=== PATIENT | male | born 1990 | race Caucasian/White ===

== ENCOUNTER 2019-07-04 11:32 | Emergency (ER) | payer SELFPAY ==
[2019-07-04 11:39] VITALS: BP 167/105; PULSE 117; RESP 20; TEMP 36.7; O2SAT 100
--- NOTE | 2019-07-04 12:01 | ED.GENADULT ---
HPI - General Adult General Chief complaint: Nausea/Vomiting/Diarrhea Stated complaint: vomiting Time Seen by Provider: 07/04/19 11:44 Source: patient and RN notes reviewed Mode of arrival: ambulatory Limitations: no limitations History of Present Illness HPI narrative: Patient presents today complaining of nausea and vomiting related to alcohol withdrawal. Patient states that he has had 1 bottle of liquor every day since mid May. His last drink was approximately 24 hours ago. At 2:00 this morning, he started vomiting, and has vomited approximately 9 times since that time. States he no longer feels nauseated. Reports he feels swelling in his uvula that is causing him to gag. States that he has had similar binges in the past that resulted in hallucinations with his withdrawal symptoms. He has never gone to the hospital when this happens. Denies hx of seizures related to alcohol withdrawal. He has been able to drink water since his vomiting episodes, and states he tends to get shaky after vomiting. MD complaint: Alcohol withdrawal Related Data Allergies Allergy/AdvReac Type Severity Reaction Status Date / Time No Known Allergies Allergy Mild Verified 02/17/08 17:52 Review of Systems Review of Systems: Narrative: CONSTITUTIONAL: Denies body aches, fever, chills, or sweats. EYES: Denies visual changes, redness, or discharge. ENT: Denies rhinorrhea, congestion, sore throat, or otalgia. Swelling in the throat CARDIOVASCULAR: Denies chest pain, palpitations, or edema. RESPIRATORY: Denies cough or dyspnea. GASTROINTESTINAL: Denies abdominal pain, or diarrhea.+ Nausea and vomiting GENITOURINARY: Denies dysuria or hematuria. SKIN: Denies rash, itching, or wounds. MUSCULOSKELETAL: Denies back pain, joint pain, or myalgia. NEUROLOGIC: Denies headache, numbness, tingling, or weakness. Shakiness PSYCH: Denies depression or anxiety. [facility] Family History Family History (Updated 05/08/19 @ 08:13 by Jeimy Choudhary) Other Diabetes mellitus Elevated lipids Hypertension Social History Social History (Updated 07/04/19 @ 13:32 by Kelly Smith, [facility], ) Alcohol intake: current Alcohol use details: Binges Comments At time of signature, I have reviewed and agree with nursing past medical, surgical, social and family history unless otherwise noted. Please see nursing chart for further information. There is no relevant family history pertinent to the presenting complaint Exam Narrative: Exam Narrative: GENERAL: Mildly ill-appearing, well-nourished, and in no acute distress. HEAD: Normocephalic, atraumatic. EYES: EOMI. No redness or drainage. Conjunctivae normal. ENT: Mucous membranes pink and moist. Nares clear. No rhinorrhea. TMs normal bilaterally. Uvula is slightly erythematous and edematous. Throat is otherwise normal. Uvula midline. NECK: Normal AROM. Supple. No lymphadenopathy. CHEST: No respiratory distress. Clear to auscultation. HEART: Regular rhythm. + Tachycardia. No murmur appreciated. Normal peripheral pulses. ABDOMEN: Soft, nontender, nondistended, normal active bowel sounds. EXTREMITIES: Normal range of motion. No edema. SKIN: Warm, dry, no rash. NEURO: No focal deficits. Alert and oriented x3. Gait steady. Fine tremors in the hands. PSYCH: Normal affect. No signs of depression or anxiety. Course Course Emergency Course: Due to patient's tachycardia, hypertension, and current symptoms, I recommend the patient go to the ER for rehydration, blood work for possible electrolyte imbalance, and to monitor for delirium tremens. Patient declines transfer. He does not currently seem under the influence of alcohol or drugs and is able to make his own decisions. He is ANO x4. Patient is willing to sign AMA paperwork and understands that if he goes home without ER evaluation, his symptoms may worsen, up to and including . He has been urged to go to the ER immediately if any symptoms worsen. V
== END 2019-07-04 12:10 | disposition left against medical advice (07) ==
PROVIDERS: Emergency Provider Nurse Practitioner
DX: F10.230 Alcohol dependence with withdrawal, uncomplicated (principal)
CPT/HCPCS: 99213; G0463

== ENCOUNTER 2020-02-19 06:39 | Inpatient (IN) | payer MEDICAID, SELFPAY ==
[2020-02-19] VITALS (12 sets, daily range): BP systolic 101–158; BP diastolic 56–106; PULSE 68–133; RESP 14–23; TEMP 36.5–37.2; O2SAT 96–100; BMI 23.8
--- NOTE | ~2020-02-19 | US_ITS ---
EXAMINATION: US right upper quadrant DATE: 02/19/2020 14:41 INDICATION: Abnormal liver function tests. TECHNIQUE: Multiple grayscale and Doppler ultrasound images of the abdomen were obtained. COMPARISON: None FINDINGS: The visualized portions of the head and body of the pancreas are normal. There is diffuse h epatic steatosis. There is normal flow in main portal vein. The gallbladder is normal in size. No gal lstones or gallbladder wall thickening. There was no sonographic Manley sign. The common duct is norm al and measures 4 mm. IMPRESSION: 1. Diffuse hepatic steatosis. Reviewed, dictated and finalized at location A.
--- NOTE | ~2020-02-19 | CT_ITS ---
EXAMINATION: CT brain wo con EXAM DATE: 02/19/2020 08:54 INDICATION: Hallucinations. TECHNIQUE: Spiral CT of the head was performed without contrast. Axial, coronal and sagittal images were reviewed. The dose-length product (DLP) for this examination was 681.00 mGy-cm. The exposure w as tailored according to patient size, and iterative reconstruction (ASIR) was used as additional dos e reduction technique. There is no prior study for comparison. FINDINGS: There is no acute intraparenchymal hemorrhage. No evidence of intraparenchymal brain mass lesion. No evidence of acute infarction. There is no mass effect or midline shift. The ventricles are normal in size. There are no extra-axial collections. There are no acute calvarial fractures. T he orbits are unremarkable. Soft tissue is unremarkable. The visualized sinuses and mastoid air delvis ls are well aerated. IMPRESSION: 1. Unremarkable head CT examination. Reviewed, dictated and finalized at location A.
--- NOTE | ~2020-02-19 | XR_ITS ---
XR chest 1V portable 02/19/2020 07:43 Indication: Hallucinations. Detoxing. Procedure: AP portable chest Comparison: No prior studies for comparison. Findings: Heart size normal. Mild interstitial infiltration bilaterally. No pleural effusion or pneum othorax. No acute osseous abnormality. Impression: 1: Bilateral interstitial infiltration which may relate to low lung volumes, mild interstitial edema or atypical pneumonia. Reviewed, dictated and finalized at location B. Impression: 1: Bilateral interstitial infiltration which may relate to low lung volumes, mi ld interstitial edema or atypical pneumonia.
--- NOTE | 2020-02-19 07:12 | ECG_ITS ---
Measurements Intervals [place] Rate: 114 P: 52 FL: 136 QRS: 70 QRSD: 98 T: 49 QT: 335 QTc: 463 Interpretive Statements SINUS TACHYCARDIA POSSIBLE LEFT ATRIAL ENLARGEMENT POSSIBLE LEFT VENTRICULAR HYPERTROPHY ST ELEVATION IN ANTEROLAT/INF LEADS- PROBABLY EARLY REPOLARIZATION BASELINE ARTIFACT- I, II, III, AVR, AVL, AVF, V1-V3 ABNORMAL ECG Electronically Signed On 02-19-2020 8:29:12 CDT by Rudolph Stahl D.O.
--- NOTE | 2020-02-19 07:13 | PC.NURSE ---
Report to oncoming RN
--- NOTE | 2020-02-19 07:33 | ED.PSYCH ---
HPI - Psych General Chief Complaint: Psychiatric Symptoms Stated Complaint: delusions Time Seen by Provider: 02/19/20 06:58 Source: patient and EMS Mode of arrival: EMS Limitations: no limitations History of Present Illness HPI Narrative: This patient is a 29 year old male with history of alcoholism who presents with EMS for evaluation of delusions. EMS states they were called to police because patient was having delusions that he had blood on his hands and he was at a [employer] party. Patient states he last drank alcohol 5 days ago. He reports he will binge alcohol for a month and then detox. He states he was drinking 1.5 bottles daily before quitting last Tuesday. He reports history of withdrawal. He is tremulous but he states he feels fine. He denies headache, nausea, vomiting, chest pain, sob or dizziness. Related Data Allergies Allergy/AdvReac Type Severity Reaction Status Date / Time No Known Allergies Allergy Mild Verified 02/17/08 17:52 Review of Systems Review of Systems: All systems reviewed & are unremarkable except as noted in HPI and below Constitutional: Constitutional: Denies chills and Denies fever(s) Cardiovascular: Cardiovascular: Denies chest pain Respiratory: Respiratory: Denies cough and Denies dyspnea Gastrointestinal: Gastrointestinal: Denies abdominal pain, Denies diarrhea, Denies nausea and Denies vomiting Musculoskeletal: Musculoskeletal: Denies back pain PMFSH Past Medical History Medical History Patient denies medical problems Surgical History Surgical History No significant past surgical history Family History Family History Other Diabetes mellitus Elevated lipids Hypertension Social History Social History Social History: The patient was positive for marijuana and told ear that he does binge drink for a month at a time and drinks about 1 and half pt of liquor a day When he binge drinks. Patient is listed as a full code. Smoking status: Current every day smoker Tobacco type: cigarettes Second hand tobacco smoke exposure: No Alcohol intake: current Substance use: current Gender identity (if verbalized by the patient): Male Spiritual care concerns: No Exam Const: General: alert Orientation/consciousness: patient oriented x3 HENMT: Head: atraumatic Face and sinus: face symmetric Mouth: Yes Normal oral and palatal mucosa present and Yes lip normal Eyes: EOM: EOMs intact bilaterally Resp: Effort & Inspection: normal respiratory effort and no retractions Auscultation: clear to auscultation bilaterally Cardio: Rate: tachycardic Rhythm: regular rhythm and regular rhythm GI: GI Palp: Yes Soft to palpation, No Tenderness to palpation present (GI), No Guarding due to palpation present (GI) and No Rigid due to palpation Skin: General skin exam: normal color Rashes: no rashes Neuro: General: patient oriented x3, moves all extremities and CN's II-XI intact bilaterally Extrem: General: no pedal edema Psych: Mental Status: mental status grossly normal Affect: normal affect Course Reevaluation(s) Reevaluation #1: Patient is becoming increasing agitated. Will move to ICU. Date: 02/19/20 Time: 10:30 Consultations Consultation #1: I spoke with Dr. Sullivan and he accepts patient to IMU for alcohol withdrawal. Date: 02/19/20 Time: 10:00 Consultation #2: I discussed with Dr. Araujo who accepts to ICU. Date: 02/19/20 Time: 10:45 Vital Signs Vital signs: Vital Signs Temperature 99.0 F 02/19/20 06:42 Pulse Rate 128 H 02/19/20 06:42 Respiratory Rate 23 H 02/19/20 06:42 Blood Pressure 153/106 H 02/19/20 06:42 Pulse Oximetry 100 02/19/20 06:42 Temperature 99.0 F 02/19/20 06:42 Pulse Rate 127 H 02/19/20 0
--- NOTE | 2020-02-19 07:45 | PC.NURSE ---
DURING INITIAL EXAM THE PT ALERT TO SELF AND PLACE. DISORIENTED ON TIME/DATE. ABLE TO RECITE YEISON EWING IS PRESIDENT. PT REPORTS SEEING HIS DOG MAX IN THE BARNETT OF THE ED AND IT WAS EXPLAINED TO THE PT THAT NO DOG IS OUT IN THE BARNETT. PT VERBALIZED UNDERSTANDING
[2020-02-19] MEDS: LACTATED RINGERS 1,000 ML 999 ML IV CONT ×2 (07:48→09:20)
[2020-02-19 07:54] LABS: Basophils Percent Auto 0.2 % (0.2-1.2); Hematocrit 43.6 % (42.0-52.0); Hemoglobin 15.4 g/dL (14.0-18.0); Immature Granulocyte Absolute 0.06 K/mm3 (0.00-0.031); Immature Granulocyte Percent A 0.4 % (0-0.5); Immature Platelet Fraction Pct 11.2 % (0.9-11.2); Lymphocytes Absolute Auto 0.56 K/mm3 (0.9-3.2); Lymphocytes Percent Auto 3.9 % (18.3-44.2); Mean Corpuscular HGB Conc 35.3 g/dl (32-36); Mean Corpuscular Hemoglobin 33.3 pg (26-34); Mean Corpuscular Volume 94.4 fl (80-100); Mean Platelet Volume 11.4 fl (7.4-10.4); Monocytes Absolute Auto 1.3 K/mm3 (0.1-0.6); Monocytes Percent Auto 8.8 % (2.6-8.5); Neutrophils Absolute Auto 12.4 K/mm3 (1.3-6.7); Neutrophils Percent Auto 86.7 % (45.5-73.1); Platelet Count Result 114 k/mm3 (150-375); Red Blood Count 4.62 M/mm3 (4.6-6.20); Red Cell Distribution Width 12.7 % (11.5-14.5); White Blood Count 14.3 K/mm3 (4.5-10.0)
[2020-02-19 08:00] LABS: Add Urine Microscopic? YES; Appearance Urine Clear (Clear); Bilirubin Urine Negative (Negative); Blood Urine 1+ (Negative); Color Urine Yellow (Yellow); Glucose Urine UA 1+ mg/dL (Negative); Ketones Urine Trace mg/dL (Negative); Leukocyte Esterase Ur Negative LEU/UL (Negative); Mucus Urine Rare /lpf; Nitrate Urine Negative (Negative); Protein Urine 3+ mg/dL (Negative); RBC Urine 0-2 /hpf (0-2); Urobilinogen Urine Negative mg/dL (<2.0); WBC Urine 0-3 /hpf
[2020-02-19 08:04] LABS: Prothrombin Time 13.1 Seconds (11.1-14.7)
[2020-02-19 08:07] LABS: Alanine Aminotransferase 117 U/L (4-50); Albumin Level 5.2 g/dL (3.5-5.1); Alkaline Phosphatase 61 U/L (38-126); Anion Gap 15 mmol/L (8-16); Aspartate Amino Transferase 131 U/L (17-59); Blood Urea Nitrogen 13 mg/dL (9-20); Calcium 11.3 mg/dL (8.4-10.2); Carbon Dioxide 24 mmol/L (22-30); Chloride 92 mmol/L (98-107); Estimated CRCL calculation 162 ml/min; Estimated Glomerular Filt Rate > 60; Glucose 112 mg/dL (75-110); Magnesium 2.4 mg/dL (1.6-2.3); Potassium 3.4 mmol/L (3.4-5.0); Sodium 131 mmol/L (137-145)
[2020-02-19 08:09] LABS: Ethanol < 10 mg/dL (<10)
[2020-02-19 08:26] LABS: Creatine Kinase 574 U/L (55-170)
[2020-02-19 08:28] LABS: Amphetamine Screen Urine Negative (Negative); Barbiturate Screen Urine Negative (Negative); Benzodiazepines Screen Urine Negative (Negative); Cannabinoid Screen Urine Positive (Negative); Cocaine Screen Urine Negative (Negative); Methadone Screen Urine Negative (Negative); Opiate Screen Urine Negative (Negative); Phencyclidine Screen Urine Negative (Negative)
--- NOTE | 2020-02-19 08:30 | PC.NURSE ---
PT COOPERATIVE BUT REMAINS FIDGETY. PULLING AT GOWN AND PICKING AT HIS FINGERTIPS. ADVISED PT TO KEEP ARMS RELAXED. LIGHTS DIMMED FOR COMFORT. SITTER IS AT BEDSIDE FOR MONITORING.
[2020-02-19 09:15] LABS: NT Pro B Type Natriuretic Pept 429 PG/ML (5-100)
[2020-02-19 09:20] LABS: Troponin I 0.015 ng/mL (0.000-0.034)
[2020-02-19 09:23] LABS: CRP 1.8 mg/dL (<1.0)
--- NOTE | 2020-02-19 09:30 | PC.NURSE ---
PT BECOMING MORE BIZARRE WITH HIS SPEECH AND DELUSIONS. THINKS THAT THE TOWEL DISPENSER IS A ROBOT LOOKING AT HIM. ALERT TO SELF ONLY AT THIS TIME. TREMORS CONTINUE.
[2020-02-19 09:41] LABS: Lactic Acid Reflex 1.5 mmol/L (0.7-2.1)
--- NOTE | 2020-02-19 11:05 | PC.NURSE ---
PT INCREASINGLY AGITATED AND CONFUSED WITH NONSENSICAL SPEECH. DR RODRIGEZ AWARE AND MORE ATIVAN WAS GIVEN. MECHE AT BEDSIDE TO HELP MONITOR PT
[2020-02-19] MEDS: POTASSIUM CHLORIDE 20 MEQ TABLET 40 MEQ PO (11:19)
[2020-02-19] MEDS: chlordiazePOXIDE 25 MG CAPSULE 50 MG PO ×2 (11:19→23:19)
[2020-02-19] MEDS: HALOPERIDOL LACTATE 5 MG/ML VIAL 2 MG IV PUSH (11:28)
--- NOTE | 2020-02-19 11:30 | PC.NURSE ---
INCREASINGLY AGITATED. ATTEMPTING TO GIVE PO MEDS AND START ADDITIONAL IV FLUIDS/MEDS. HALDOL GIVEN PER ORDER. WILL CALL REPORT TO ICU YOVANY
--- NOTE | 2020-02-19 12:37 | WPDCNINT ---
Assessment and Plan Assessment and plan (1) Encephalopathy acute: Code(s): G93.40 - Encephalopathy, unspecified Status: Acute Assessment and Plan: acute encephalopathy is multifactorial. From history and clinical presentation it is possible that patient is withdrawing from alcohol leading to tremors and hallucinations. Patient has received significant amount of Ativan and Haldol in the ER and history is limited at this point. Patient may also have used other drugs which we are not aware of at this point. Urine drug screen has been reviewed. Head CT was negative. neurochecks (2) Delirium tremens: Code(s): F10.231 - Alcohol dependence with withdrawal delirium Status: Acute Assessment and Plan: I have started patient on Precedex infusion. Patient is restrained for his own safety. Continue thiamine and folic acid p.r.n. Ativan and schedule Librium monitor in ICU (3) Sepsis: Code(s): A41.9 - Sepsis, unspecified organism Status: Acute Assessment and Plan: patient has elevated white count and other criteria to meet for sepsis. lactic acid was normal And also has some interstitial infiltrates on his chest x-ray could be atypical pneumonia patient is on empiric antibiotic sent culture and check Legionella COVID-19 rule out IV fluids (4) Pneumonia: Code(s): J18.9 - Pneumonia, unspecified organism Status: Acute Assessment and Plan: chest x-ray suggested interstitial infiltrate which could be pneumonia. Patient has elevated BNP suggestive of evidence of congestive heart failure although patient is only 29 years old but could have nonischemic cardiomyopathy from alcohol abuse. I will check echocardiogram. will check Legionella urine antigen cultures have been sent patient will be on empiric antibiotic cautious IV fluids specially in light of his rhabdo and possible pneumonia (5) Rhabdomyolysis: Code(s): M62.82 - Rhabdomyolysis Status: Acute Assessment and Plan: IV fluids monitor electrolytes (6) Suspected COVID-19 virus infection: Code(s): Z20.828 - Contact with and (suspected) exposure to other viral communicable diseases Status: Acute Assessment and Plan: COVID-19 suspected. SARS-CoV-2 PCR sent and results pending Patient is in Airborne, Droplet and Contact Isolation (7) Elevated liver enzymes: Code(s): R74.8 - Abnormal levels of other serum enzymes Status: Acute Assessment and Plan: likely secondary to alcohol abuse monitor levels check right upper quadrant ultrasound Additional Plan DVT prophylaxis - SCDs Nutrition - NPO at this Code Status - Full Code Relief Worker Consult Note Consult date: 02/19/20 Time Seen: 12:00 HPI: Abelardo Miller is a 29 year male with history of alcoholism who presented with EMS for evaluation of hallucinations. EMS states they were called to police because patient was having hallucination that he had blood on his hands and he was at a cult [employer]. Patient mentioned in the ED that his last drank alcohol was 5 days ago. He reported that he will binge alcohol for a month and then detox. He states he was drinking 1.5 bottles daily before quitting last Tuesday. He reported history of withdrawal. He was tremulous but he stated he felt fine at that time. He denied other complaints at that point. Patient had elevated white count and chest x-ray showed infiltrate patient's was started on antibiotics IV fluids and isolated for COVID-19 testing. Patient alcohol withdrawal symptoms got worse and he became more tremulous agitated in the ER as per sign out from ED physician. Initially patient was going to be admitted to step-down unit patient required significant amount of Ativan and Haldol to control his agitation. At that point ICU bed was requested for closer monitoring and management of patient's alcohol withdrawal symptom
--- NOTE | 2020-02-19 12:42 | ADMGEN ---
This patient, Abelardo Miller, was admitted to Intensive Care Unit-5. Patient/family oriented to hospital policies and general routines including ID bracelet, bed and alarms, visiting hours, pain management, procedures, bathroom and other care routines, personal items, smoking policy, room service/diet, and visiting hours. Valuables list has been completed. Information on how to activate the Rapid Response Team has been discussed. Patient/Family are encouraged to report perceived risks to care and to ask questions if they do not understand what they are told or what they should do.
--- NOTE | 2020-02-19 12:45 | PM.IMHP ---
H&P: HPI History of Present Illness Date/Time: 02/19/20 12:45 Chief complaint: alcohol withdrawl,leukocytosis,dehydration Narrative: Robert Miller is a 29 year old male Who has a history of alcoholism. He came to the emergency room to be evaluated for delusions. The please were called because the patient was having delusions that he had blood on his hands and he was out [employer] party. His last known alcoholic drink was approximately 5 days ago. The patient her told ER that he would binge drink for month and then he would detox. He was drinking up to 1 and half bottles daily and quit this past Tuesday. He has not had any history of any seizures or history of withdrawals. Although he was tremulous in the emergency room and stated that he was fine. He denied any fever chills or cough. He denied any nausea vomiting chest pain shortness of breath or dizziness. EKG was read as sinus tachycardia. It is unclear if the patient had gotten violent in the emergency room. Chest x-ray was read as atypical pneumonia. The patient was started on IV azithromycin and Rocephin. Blood cultures are pending. he has l leukocytosis with white count of 14.3. Sodium is 131, chloride 92, AST is 131, ALT 117, total creatinine kinase 574, C reactive protein 1.8. His tox screen was positive for cannabis. Patient was started on a banana bag. He is on a Precedex drip. He was placed in the intensive care unit in isolation . It looks like the patient was given potassium in the emergency room started on lactated Ringer's initially and given several doses of Ativan as well as Haldol. Patient was admitted to ICU as date of service 02/19/20 Review of Systems Review of Systems: Narrative: the patient is on a Precedex drip and is unresponsive. ROS unobtainable: Yes unobtainable due to mental status Constitutional: Constitutional: Reports as per HPI and Reports no additional constitutional complaints Eyes: Eyes: Reports as per HPI and Reports no additional eye complaints ENT: Reports system reviewed and no additional complaints, except as documented and Reports Normal hearing present Cardiovascular: Cardiovascular: Reports no additional cardiovascular complaints Respiratory: Respiratory: Reports no additional respiratory complaints and Reports no additional respiratory complaints Gastrointestinal: Gastrointestinal: Reports as per HPI and Reports no additional gastrointestinal complaints Musculoskeletal: Musculoskeletal: Reports no additional musculoskeletal complaints Integumentary/Breasts: Skin/Breast: Reports system reviewed and no additional complaints, except as docu and Reports as per HPI Neurologic: Reports system reviewed and no additional complaints, except as documented, Reports as per HPI and Reports Normal hearing present Psychiatric: Psychiatric: Reports no additional psychiatric complaints and Reports as per HPI Endocrine: Endocrine: Reports no additional endocrine complaints Hematologic/Lymphatic: Hematologic/Lymphatic: Reports no additional hematologic/lymphatic complaints Allergic/Immunologic: Allergic/Immunologic: Reports no additional allergic/immunologic complaints PMF Past Medical History Medical History Patient denies medical problems Surgical History Surgical History No significant past surgical history Family History Family History Other Diabetes mellitus Elevated lipids Hypertension Social History Social History (Updated 02/19/20 @ 12:58 by Dot Mujica NP) Social History: The patient was positive for marijuana and told ear that he does binge drink for a month at a time and drinks about 1 and half pt of liquor a day When he binge drinks. Patient is listed as a full code. Smoking status: Current every day smoker Tobacco type: cigaret
--- NOTE | 2020-02-19 13:22 | PC.NURSE ---
PT ALERT TO SELF AND PLACE. CONFUSED ON TIME. ABLE TO GIVE PRESIDENT'S FULL NAME YEISON EWING . WHILE IN ROOM DURING INITIAL EXAM THE PT REPORTED SEEING HIS DOG MAX OUT IN THE BARNETT. PT WAS REORIENTED AND TOLD NO DOG IS IN THE ED.
[2020-02-19 14:22] LABS: Ammonia 16 umol/L (9-30)
[2020-02-19 14:38] LABS: Iron 33 ug/dL (49-181)
[2020-02-19 14:47] LABS: Percent Iron Saturation 13 % (20-50)
[2020-02-19 15:11] LABS: Hepatitis B Surface Antigen Negative (Negative)
[2020-02-19 15:17] LABS: HAV RESULT Negative (Negative); Hepatitis B Core IgM Result Negative (Negative)
[2020-02-19 15:29] LABS: Folic Acid 17.2 ng/mL (2.76->20)
[2020-02-19 15:35] LABS: Hepatitis C Virus Antibody Negative (Negative)
[2020-02-19 16:28] LABS: Hepatitis B Surface Anti Res Indeterminate
[2020-02-19 20:33] LABS: SARS-CoV-2 RNA PCR Negative
[2020-02-19] MEDS: SODIUM CHLORIDE 0.9% IV 1,000 ML 100 ML IV CONT (23:18)
[2020-02-20] VITALS (9 sets, daily range): BP systolic 134–149; BP diastolic 90–113; PULSE 73–89; RESP 17–22; TEMP 36.3–37.1; O2SAT 93–100
--- NOTE | 2020-02-20 | ECHO_ITS ---
Patient Info Name: Abelardo Miller Age: 29 years : 1990 Gender: Male Ht: 76 in Wt: 195 lbs BSA: 2.18 m2 HR: 80 bpm BP: 147 / 113 mmHg Heart Rhythm: Sinus Rhythm Technical Quality: Good Exam Date: 02/20/2020 10:16 AM Exam Location: [facility] Pulmonary Patient Status: Inpatient Admit Date: 02/19/2020 Staff Ordering Physician: Jake Araujo MD [employer] Operator: Don Aldana RDCS Attending Provider: Emy Sullivan MD Exam Type: CA echo doppler color flow Study Info Indications I50.9 - Heart failure, unspecified Complete two-dimensional, color flow and Doppler transthoracic echocardiogram is performed. Strain analysis performed. History/Risk Factors Heart failure; elevated BNP, AMS 2/2 EtOH withdrawal, sepsis. Summary 1. Complete two-dimensional, color flow and Doppler transthoracic echocardiogram is performed. 2. Normal left ventricular size and thickness. The left ventricular systolic function is mildly reduced, measured EF is 49% with a visual EF of 45-50%. No focal wall motion abnormalities. Global longitudinal strain is mildly reduced at -14%, consistent with systolic dysfunction. Normal diastolic function. 3. No pulmonary hypertension, estimated pulmonary arterial systolic pressure is 31 mmHg. 4. There is trace mitral valve regurgitation. 5. Trivial mitral and tricuspid regurgitation. 6. Normal sinus rhythm. Left Ventricle Left ventricular chamber dimension is normal. Left ventricular systolic function is mildly reduced, estimated at 45-50%. There is no increased left ventricular wall thickness. Left ventricular septal wall motion is normal. The left ventricular diastolic function is normal. E/e' 6.2 is moderately elevated. Global longitudinal strain is mildly elevated at -14 %. Right Ventricle Right ventricular chamber dimension is normal. Right ventricular systolic function is normal. Left Atria Left atrial chamber dimension is normal. Right Atria Right atrial chamber dimension is normal. Aortic Valve The aortic valve is trileaflet. There is no aortic valve sclerosis. There is no aortic valve stenosis. There is no aortic valve regurgitation. Pulmonic Valve The pulmonic valve is normal. There is no pulmonic valve stenosis. There is no pulmonic regurgitation. Mitral Valve The mitral valve has normal leaflets. There is no mitral valve stenosis. There is trace mitral valve regurgitation. Tricuspid Valve The tricuspid valve leaflets are normal. There is no significant tricuspid valve stenosis. There is trace tricuspid valve regurgitation. No pulmonary hypertension, estimated pulmonary arterial systolic pressure is 31 mmHg. Pericardium/Pleural The pericardium appears normal. There is no pericardial effusion. Inferior Vena Cava Normal inferior vena cava with >50% collapse upon inspiration consistent with Empty right atrial pressure, 5 mmHg. Aorta The aortic root size at the sinus of Valsalva is normal. The prox ascending aorta size is normal. Left Ventricular Outflow Tract Name Value Normal LVOT 2D LVOT Diameter 2.3 cm LVOT Doppler
[2020-02-20 04:55] LABS: Basophils Percent Auto 0.3 % (0.2-1.2); Eosinophils Absolute Auto 0.1 K/mm3 (0-0.3); Eosinophils Percent Auto 1.3 % (0-4.4); Hematocrit 39.6 % (42.0-52.0); Hemoglobin 13.6 g/dL (14.0-18.0); Immature Granulocyte Absolute 0.05 K/mm3 (0.00-0.031); Immature Granulocyte Percent A 0.5 % (0-0.5); Immature Platelet Fraction Pct 8.9 % (0.9-11.2); Lymphocytes Absolute Auto 0.68 K/mm3 (0.9-3.2); Lymphocytes Percent Auto 7.1 % (18.3-44.2); Mean Corpuscular HGB Conc 34.3 g/dl (32-36); Mean Corpuscular Hemoglobin 33.3 pg (26-34); Mean Corpuscular Volume 97.1 fl (80-100); Mean Platelet Volume 11.3 fl (7.4-10.4); Monocytes Absolute Auto 0.9 K/mm3 (0.1-0.6); Monocytes Percent Auto 9.2 % (2.6-8.5); Neutrophils Absolute Auto 7.8 K/mm3 (1.3-6.7); Neutrophils Percent Auto 81.6 % (45.5-73.1); Platelet Count Result 107 k/mm3 (150-375); Red Blood Count 4.08 M/mm3 (4.6-6.20); Red Cell Distribution Width 12.8 % (11.5-14.5); White Blood Count 9.5 K/mm3 (4.5-10.0)
[2020-02-20 05:06] LABS: Alanine Aminotransferase 103 U/L (4-50); Albumin Level 3.9 g/dL (3.5-5.1); Alkaline Phosphatase 47 U/L (38-126); Anion Gap 6 mmol/L (8-16); Aspartate Amino Transferase 115 U/L (17-59); Bilirubin,Total 0.8 mg/dL (0.2-1.3); Blood Urea Nitrogen 8 mg/dL (9-20); Calcium 9.3 mg/dL (8.4-10.2); Carbon Dioxide 28 mmol/L (22-30); Chloride 102 mmol/L (98-107); Creatine Kinase 319 U/L (55-170); Estimated CRCL calculation 186 ml/min; Estimated Glomerular Filt Rate > 60; Glucose 98 mg/dL (75-110); Magnesium 2.1 mg/dL (1.6-2.3); Potassium 3.4 mmol/L (3.4-5.0); Sodium 136 mmol/L (137-145)
[2020-02-20] MEDS: chlordiazePOXIDE 25 MG CAPSULE 50 MG PO ×4 (05:19→23:19)
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
[2020-02-20] MEDS: SODIUM CHLORIDE 0.9% IV 1,000 ML 100 ML IV CONT ×2 (08:02→13:55)
[2020-02-20] MEDS: FOLIC ACID 1 MG/0.2 ML INJ IV PUSH (08:03)
[2020-02-21 04:28] LABS: Hematocrit 37.4 % (42.0-52.0); Immature Platelet Fraction Pct 7.1 % (0.9-11.2); Mean Corpuscular HGB Conc 34.8 g/dl (32-36); Mean Corpuscular Hemoglobin 33.2 pg (26-34); Mean Corpuscular Volume 95.7 fl (80-100); Mean Platelet Volume 11.1 fl (7.4-10.4); Platelet Count Result 127 k/mm3 (150-375); Red Blood Count 3.91 M/mm3 (4.6-6.20); Red Cell Distribution Width 12.9 % (11.5-14.5)
[2020-02-21 04:50] LABS: Alanine Aminotransferase 85 U/L (4-50); Alkaline Phosphatase 57 U/L (38-126); Anion Gap 8 mmol/L (8-16); Aspartate Amino Transferase 92 U/L (17-59); Bilirubin,Total 0.6 mg/dL (0.2-1.3); Blood Urea Nitrogen 4 mg/dL (9-20); Calcium 9.7 mg/dL (8.4-10.2); Carbon Dioxide 28 mmol/L (22-30); Chloride 101 mmol/L (98-107); Creatine Kinase 509 U/L (55-170); Estimated CRCL calculation 154 ml/min; Estimated Glomerular Filt Rate > 60; Glucose 91 mg/dL (75-110); Potassium 2.8 mmol/L (3.4-5.0); Sodium 137 mmol/L (137-145)
[2020-02-21] MEDS: chlordiazePOXIDE 25 MG CAPSULE 50 MG PO ×4 (06:03→23:31)
[2020-02-21 08:00] VITALS: BP 123/67; PULSE 86; RESP 14; TEMP 36.6; O2SAT 99
[2020-02-21] MEDS: FOLIC ACID 1 MG TABLET PO (08:39)
[2020-02-21] MEDS: THIAMINE HCL 100 MG TABLET PO (08:39)
--- NOTE | 2020-02-21 09:46 | PM.IMPN ---
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 (3) Delirium tremens: Code(s): F10.231 - Alcohol dependence with withdrawal delirium Status: Acute Assessment and Plan: Resolved. Still having withdrawal. Continue ETOH withdrawal protocol Started Librium 100 mg po q 6 hrs will taper off going home Supportive care Discussed 12 step program (4) Pneumonia: Code(s): J18.9 - Pneumonia, unspecified organism Status: Acute Assessment and Plan: Rocephin + Zithromax Continue to monitor (5) Elevated liver enzymes: Code(s): R74.8 - Abnormal levels of other serum enzymes Status: Acute Assessment and Plan: Slight elevation likely secondary to ETOH intake Trending down (6) Generalized anxiety disorder: Code(s): F41.1 - Generalized anxiety disorder Status: Acute Assessment and Plan: Patient expressed having anxiety. Started Buspirone 2.5 mg tid Will need follow up in the outpatient setting Needs to be set up for PCP as doesn't have one currently. Subjective Date/time seen: 02/21/20 09:46 Patient was seen and examined earlier in the morning. He was sitting was pleasant. Review of Systems Review of Systems: Narrative: Hallucinations, tremors, involuntary leg movement. 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 Eyes: Comments: No change in vision. ENT: Comments: No ear pain, no throat pain, no change in vision. Cardiovascular: Comments: no chest pain. Respiratory: Comments: no cough, no sputum production, no sob. Gastrointestinal: Comments: no n/v/abdominal pain. Musculoskeletal: Comments: no muscle weakness or pain. Integumentary/Breasts: Comments: no rashes, no wounds. Neurologic: Reports paresthesias and Reports tremor(s) Comments: Hand tremor, b/l LE paresthesias. Psychiatric: Comments: Visual hallucinations. Exam Narrative: Exam Narrative: Sitting on chair, NAD, well nourished, well developed, slim. Const: General: cooperative, comfortable, alert, awake and anxious Nutritional Appearance: well nourished Orientation/consciousness: patient oriented x3 Other: Some tremor of the hands b/l. HENMT: Head: normocephalic Ears: hearing grossly normal bilaterally General nose exam: Normal external nose present Face and sinus: normal facial exam Mouth: Yes Normal oral and palatal mucosa present Eyes: General: appearance normal, both eyes and all related structures Pupils: Equal, round and reactive pupils present EOM: EOMs intact bilaterally Neck: Neck: normal visual inspection, full ROM, no lymphadenopathy and no JVD Resp: Effort & Inspection: normal respiratory effort Auscultation: clear to auscultation bilaterally Cardio: Jugular venous distension: no JVD Palpation: normal PMI Rate: regular rate Rhythm: regular rhythm Heart sounds: S1 normal heart sound present and S2 normal heart sound present GI: Inspection: normal to inspection GI Palp: Yes Soft to palpation and Yes No hepatosplenomegaly present Auscultation: normal bowel sounds Skin: General skin exam: normal color Lesions: no lesions Rashes: no rashes Wounds: no wounds Neuro: General: patient oriented x3 Cranial nerves: Yes CN's II-XII intact bilaterally, Yes Equal, round and reactive pupils present and Yes Bilaterally intact EOM present Speech: normal speech Motor exam (neuro): 5/5 motor strength present throughout Other: Hand tremor Objective Data Vital Signs Vital Signs: Vital Signs - 24 hr 02/20/20 10:00 02/20/20 12:00 02/20/20 14:00 Temperature 98.2 F Pulse Rate 75 79 89 Respiratory Rate 22 H 21 H 22 H Blood Press
[2020-02-21] MEDS: GABAPENTIN 100 MG CAPSULE PO ×2 (11:15→18:16)
[2020-02-21] MEDS: busPIRone HCL 2.5 MG TABLET PO ×2 (11:15→20:22)
--- NOTE | 2020-02-21 15:08 | PC.NURSE ---
This patient, Abelardo Miller, was transferred to [facility] on 02/21/20 at 1500. Personal belongings sent with patient. Report given to Lluvia ROSALES. Appropriate documentation sent with patient.
[2020-02-21 15:10] VITALS: BP 160/98; PULSE 82; RESP 16; TEMP 36.6; O2SAT 98
[2020-02-21 20:00] VITALS: BP 165/112; PULSE 79; RESP 12; O2SAT 99
[2020-02-21 20:58] VITALS: BP 165/112; PULSE 79; RESP 12; TEMP 36.7; O2SAT 99
[2020-02-21 22:00] VITALS: BP 163/112
[2020-02-22 05:35] LABS: Hemoglobin 13.7 g/dL (14.0-18.0); Mean Corpuscular HGB Conc 34.3 g/dl (32-36); Mean Corpuscular Hemoglobin 33.3 pg (26-34); Mean Corpuscular Volume 97.1 fl (80-100); Mean Platelet Volume 11.1 fl (7.4-10.4); Platelet Count Result 176 k/mm3 (150-375); Red Blood Count 4.12 M/mm3 (4.6-6.20); Red Cell Distribution Width 12.8 % (11.5-14.5); White Blood Count 5.1 K/mm3 (4.5-10.0)
[2020-02-22 05:48] LABS: Potassium 3.3 mmol/L (3.4-5.0)
[2020-02-22] MEDS: chlordiazePOXIDE 25 MG CAPSULE 50 MG PO (05:51)
[2020-02-22 06:00] VITALS: BP 165/102; PULSE 76; RESP 12; TEMP 36.6; O2SAT 100
[2020-02-22 06:01] LABS: Alanine Aminotransferase 88 U/L (4-50); Albumin Level 4.1 g/dL (3.5-5.1); Alkaline Phosphatase 51 U/L (38-126); Anion Gap 6 mmol/L (8-16); Aspartate Amino Transferase 78 U/L (17-59); Bilirubin,Total 0.5 mg/dL (0.2-1.3); Blood Urea Nitrogen 5 mg/dL (9-20); Calcium 10.2 mg/dL (8.4-10.2); Carbon Dioxide 31 mmol/L (22-30); Chloride 103 mmol/L (98-107); Estimated CRCL calculation 162 ml/min; Estimated Glomerular Filt Rate > 60; Glucose 97 mg/dL (75-110); Magnesium 2.2 mg/dL (1.6-2.3); Sodium 140 mmol/L (137-145)
[2020-02-22] MEDS: busPIRone HCL 2.5 MG TABLET PO (07:55)
[2020-02-22] MEDS: GABAPENTIN 100 MG CAPSULE PO (07:56)
[2020-02-22] MEDS: THIAMINE HCL 100 MG TABLET PO (07:56)
[2020-02-22] MEDS: FOLIC ACID 1 MG TABLET PO (07:56)
--- NOTE | 2020-02-22 09:58 | PM.DS ---
DS: Admitting Diagnosis Admitting Diagnosis Admitting Diagnosis: alcohol withdrawl,leukocytosis,dehydration DS: Discharge Diagnosis Discharge Diagnosis (1) Generalized anxiety disorder: Code(s): F41.1 - Generalized anxiety disorder Status: Acute Assessment and Plan: Patient was started on Buspirone. Will try and get established care with PCP for follow up. (2) Alcoholic peripheral neuropathy: Code(s): G62.1 - Alcoholic polyneuropathy Status: Acute Assessment and Plan: Started on Gabapentin will need follow up with PCP. (3) Alcohol dependence with withdrawal: Code(s): F10.239 - Alcohol dependence with withdrawal, unspecified Status: Acute Assessment and Plan: Tapering course Librium Discussed 12 step program (4) Hyponatremia: Code(s): E87.1 - Hypo-osmolality and hyponatremia Status: Acute Assessment and Plan: Likely secondary to poor oral intake, resolved a the time of discharged, received iv fluids. (5) Thrombocytopenia: Code(s): D69.6 - Thrombocytopenia, unspecified Status: Acute Assessment and Plan: Likely secondary to ETOH intake. Continue to monitor. (6) Encephalopathy acute: Code(s): G93.40 - Encephalopathy, unspecified Status: Acute Assessment and Plan: Resolved Secondary to ETOH intake (7) Rhabdomyolysis: Code(s): M62.82 - Rhabdomyolysis Status: Acute Assessment and Plan: Mild rhabdo Given fluids CPK roughly in the 500's (8) Delirium tremens: Code(s): F10.231 - Alcohol dependence with withdrawal delirium Status: Acute Assessment and Plan: Resolved, Librium taperin course. DS: Summary Time Spent with Patient Time attestation: Total time spent providing and/or coordinating discharge services: Exam Narrative: Exam Narrative: Slim, well nourished, well developed. Const: General: no acute distress Nutritional Appearance: average body habitus Orientation/consciousness: patient oriented x3 HENMT: Head: normal to inspection and normocephalic Ears: hearing grossly normal bilaterally General nose exam: Normal external nose present Face and sinus: normal facial exam Mouth: Yes Normal oral and palatal mucosa present Eyes: Pupils: Equal, round and reactive pupils present EOM: EOMs intact bilaterally Neck: Neck: normal visual inspection, no lymphadenopathy and no JVD Resp: Effort & Inspection: normal respiratory effort Auscultation: clear to auscultation bilaterally Cardio: Jugular venous distension: no JVD Rate: regular rate Rhythm: regular rhythm Heart sounds: S1 normal heart sound present and S2 normal heart sound present GI: Inspection: normal to inspection GI Palp: Yes Soft to palpation and Yes No hepatosplenomegaly present Auscultation: normal bowel sounds Skin: General skin exam: normal color Lesions: no lesions Wounds: no wounds Neuro: General: patient oriented x3 Cranial nerves: Yes CN's II-XII intact bilaterally and Yes Equal, round and reactive pupils present Psych: Appearance: grossly normal Mental Status: mental status grossly normal Speech and movement: Normal speech and movement present Affect: normal affect Attitude: cooperative Thought process: Normal thought process present Thought content: Yes Normal thought content present Insight: Good insight present (Psych) Judgement: Good judgement present (Psych) DS: Data Data Completed and Pending Labs on day of discharge: Labs from last 24 hours 02/22/20 02/22/20 05:01 05:01 WBC 5.1 RBC 4.12 L Hgb 13.7 L Hct 40.0 L MCV 97.1 MCH 33.3 MCHC 34.3 RDW 12.8 Plt Count 176 MPV 11.1 H Sodium 140 Potassium 3.3 L Chloride 103 Carbon Dioxide 31 H Anion Gap 6 L BUN 5 L Creatinine 0.70 Estim Creat Clear Calc 162 Estimated GFR > 60 Glucose 97 Calcium 10.2 Magnesium 2.2 Total Bilirubin 0.5 AST 78 H ALT 88 H Alkaline
--- NOTE | 2020-02-22 10:48 | PC.NURSE ---
Copy of Negative Covid Test sent home with patient
[2020-02-23 10:07] LABS: Myoglobin, Urine 42 mcg/L (<28)
[2020-02-23 21:13] LABS: Hepatitis B Core Ab Total Nonreactive (Nonreactive)
[2020-02-24 13:32] LABS: Legionella pneumophila Ag Ur Not Detected (Not Detected)
[2020-02-25 14:44] LABS: Mitochondrial (M2) Ab (IgG) <=20.0 U (<=20.0)
[2020-02-25 20:49] LABS: Anti Nuclear Antibody Pattern Nuclear, Speckled
== END 2020-02-22 10:46 | disposition home or self-care (01) | DRG 775 ==
LOC: ANHED 06:58 → ANHICU 10:21 → ANH2MED 02-22 10:15 → ANHICU 02-25 16:51
PROVIDERS: Internal Medicine; Nurse Practitioner; Admitting Provider Family Medicine; Emergency Provider General Practice; Visit Provider Internal Medicine
DX: F10.231 Alcohol dependence with withdrawal delirium (principal); J18.9 Pneumonia, unspecified organism; G31.2 Degeneration of nervous system due to alcohol; G62.1 Alcoholic polyneuropathy; Z20.828 Contact with and (suspected) exposure to other viral communicable diseases; F41.1 Generalized anxiety disorder; E87.1 Hypo-osmolality and hyponatremia; D69.59 Other secondary thrombocytopenia; M62.82 Rhabdomyolysis; R74.8 Abnormal levels of other serum enzymes; E86.0 Dehydration; D72.829 Elevated white blood cell count, unspecified; F12.929 Cannabis use, unspecified with intoxication, unspecified; F17.210 Nicotine dependence, cigarettes, uncomplicated
CPT/HCPCS: 36415; 70450; 71045; 76705; 80053; 80307; 81001; 82140; 82550; 82607; 82728; 82746; 83520; 83540; 83550; 83605; 83735; 83874; 83880; 84443; 84484; 85025; 85027; 85055; 85610; 85730; 86038; 86039; 86140; 86704; 86705; 86706; 86709; 86803; 87040; 87340; 87449; 87635; 93005; 93306; 96361; 96374; 99285; A9270; C9803; J0456; J0696; J1630; J2060; J3411; J3475; J3480; J7030; J7120; U0003

== ENCOUNTER 2020-06-09 06:25 | Inpatient (IN) | payer OTHER, SELFPAY ==
[2020-06-09] VITALS (28 sets, daily range): BP systolic 105–149; BP diastolic 73–115; PULSE 96–121; RESP 12–21; TEMP 36.5–36.9; O2SAT 98–100; BMI 23.1
--- NOTE | 2020-06-09 07:09 | ED.GENADULT ---
HPI - General Adult General Chief complaint: Alcohol Stated complaint: Alcohol Withdrawl Time Seen by Provider: 06/09/20 07:02 Source: RN notes reviewed History of Present Illness HPI narrative: Patient presents to emergency department from home for alcohol withdrawal. Patient states he was drinking approximately a liter of vodka a day. States he stopped drinking 4 days ago because he decided was time to quit drinking for his health patient states that since that time he has been having nausea vomiting unable to keep anything down states that he is also been having both visual and auditory hallucinations as well as tremors. He states that he has had no thoughts of harming himself or anyone else he denies any fevers or chills chest pain shortness of breath abdominal pain or any other symptoms Related Data Home Medications Medication Instructions Recorded Confirmed No Home Medications 06/09/20 06/09/20 Allergies Allergy/AdvReac Type Severity Reaction Status Date / Time No Known Allergies Allergy Mild Verified 06/09/20 06:31 Review of Systems Review of Systems: Narrative: Gen.: Denies fevers or chills ENT: Denies congestion Respiratory: Denies shortness of breath or cough CV: Denies chest pain or palpitations GI: Denies abdominal pain reports nausea vomiting denies burning, urgency, frequency or hematuria Musculoskeletal: Denies back pain or muscle pain Neuro: Denies numbness, tingling, weakness or focal weakness reports tremors Skin: Denies rash Psych: Reports auditory and visual hallucinations Except as documented, all other systems reviewed and negative PMF Past Medical History Medical History (Updated 06/09/20 @ 09:21 by Dom Woodson DO) Patient denies medical problems Surgical History Surgical History No significant past surgical history Family History Family History Other Diabetes mellitus Elevated lipids Hypertension Social History Social History Social History: The patient was positive for marijuana and told ear that he does binge drink for a month at a time and drinks about 1 and half pt of liquor a day When he binge drinks. Patient is listed as a full code. Smoking status: Current every day smoker Tobacco type: cigarettes Second hand tobacco smoke exposure: No Alcohol intake: current Substance use: current Gender identity (if verbalized by the patient): Male Spiritual care concerns: No Exam Narrative: Exam Narrative: APPEARANCE: Anxious in appearance no acute distress, nontoxic, resting in bed EYES: EOMI HEENT: Normocephalic, atraumatic, OMM RESPIRATORY: No respiratory distress Clear to auscultation bilaterally with no rhonchi wheezing or rales. CARDIOVASCULAR: Regular rate and rhythm without murmurs rubs or gallops. ABDOMINAL: Soft, nontender, nondistended, no rebound or guarding MUSCULOSKELETAl: Moves all extremities. No clubbing, cyanosis or edema. NEURO: Awake and alert x 4. Following commands, speech normal, no focal deficits SKIN:: Warm, dry. No rashes lesions or abrasions PSYCHIATRIC: Normal affect/mood, Course Course Emergency Course: Patient states tremors are improved following Ativan Reviewed old records Discussed with Dr. Sullivan presentation work-up agrees with admission to IMCU at this time Discussed with patient and family results of workup and diagnosis. Discussed need for admission. Patient and family understand and agree to current treatment plan Vital Signs Vital signs: Vital Signs Temperature 98.5 F 06/09/20 06:28 Pulse Rate 121 H 06/09/20 06:28 Respiratory Rate 12 06/09/20 06:28 Blood Pressure 149/84 H 06/09/20 06:28 Pulse Oximetry 100 06/09/20 06:28 Temperature 98.5 F 06/09/20 06:28 Pulse Rate 110 H 06/09/20 09:01 Respiratory Rate 14 01
[2020-06-09] MEDS: SODIUM CHLORIDE 0.9% IV 1,000 ML 999 ML IV CONT ×2 (07:21→08:17)
[2020-06-09] MEDS: ONDANSETRON INJ 4 MG/2 ML VIAL IV PUSH (07:21)
[2020-06-09 07:24] LABS: Basophils Percent Auto 0.4 % (0.2-1.2); Eosinophils Percent Auto 0.1 % (0-4.4); Hematocrit 48.1 % (42.0-52.0); Hemoglobin 16.6 g/dL (14.0-18.0); Immature Granulocyte Absolute 0.02 K/mm3 (0.00-0.031); Immature Granulocyte Percent A 0.3 % (0-0.5); Immature Platelet Fraction Pct 11.2 % (0.9-11.2); Lymphocytes Absolute Auto 1.13 K/mm3 (0.9-3.2); Lymphocytes Percent Auto 14.6 % (18.3-44.2); Mean Corpuscular HGB Conc 34.5 g/dl (32-36); Mean Corpuscular Volume 95.6 fl (80-100); Monocytes Absolute Auto 1.1 K/mm3 (0.1-0.6); Neutrophils Absolute Auto 5.5 K/mm3 (1.3-6.7); Neutrophils Percent Auto 70.6 % (45.5-73.1); Platelet Count Result 140 k/mm3 (150-375); Red Blood Count 5.03 M/mm3 (4.6-6.20); Red Cell Distribution Width 12.8 % (11.5-14.5); White Blood Count 7.7 K/mm3 (4.5-10.0)
[2020-06-09] MEDS: LORazepam INJ (*CRX) 2 MG/ML VIAL 1 MG IV PUSH ×3 (07:28→20:23)
[2020-06-09] MEDS: THIAMINE HCL 200 MG/2 ML VIAL 100 MG IV PUSH (07:28)
[2020-06-09 07:31] LABS: INR 0.9; Prothrombin Time 12.6 Seconds (11.1-14.7)
[2020-06-09 07:32] LABS: Partial Thromboplastin Time 23.2 SECONDS (22.3-36.8)
[2020-06-09 07:33] LABS: Alanine Aminotransferase 105 U/L (4-50); Albumin Level 5.5 g/dL (3.5-5.1); Alkaline Phosphatase 72 U/L (38-126); Anion Gap 28 mmol/L (8-16); Aspartate Amino Transferase 137 U/L (17-59); Bilirubin,Total 1.1 mg/dL (0.2-1.3); Blood Urea Nitrogen 8 mg/dL (9-20); Calcium 11.5 mg/dL (8.4-10.2); Carbon Dioxide 15 mmol/L (22-30); Chloride 84 mmol/L (98-107); Estimated CRCL calculation 113 ml/min; Estimated Glomerular Filt Rate > 60; Glucose 141 mg/dL (75-110); Lipase 352 U/L (23-300); Potassium 4.2 mmol/L (3.4-5.0); Sodium 127 mmol/L (137-145)
[2020-06-09 07:41] LABS: Ethanol < 10 mg/dL (<10)
[2020-06-09 08:02] LABS: Add Urine Microscopic? YES; Appearance Urine Cloudy (Clear); Bilirubin Urine 1+ (Negative); Blood Urine 1+ (Negative); Color Urine Yellow (Yellow); Glucose Urine UA 1+ mg/dL (Negative); Hyaline Casts Urine 50+ /lpf; Ketones Urine 2+ mg/dL (Negative); Leukocyte Esterase Ur Negative LEU/UL (Negative); Mucus Urine Heavy /lpf; Nitrate Urine Negative (Negative); Protein Urine 3+ mg/dL (Negative); Specific Grav Ur 1.029 (1.001-1.035); Squamous Epithelial Cell Urine Occasional /hpf (Few); Urobilinogen Urine Negative mg/dL (<2.0)
[2020-06-09 08:34] LABS: Magnesium 1.9 mg/dL (1.6-2.3)
[2020-06-09] MEDS: chlordiazePOXIDE (*CRX) 25 MG CAPSULE 50 MG PO ×3 (09:57→22:16)
--- NOTE | 2020-06-09 11:13 | ADMGEN ---
This patient, Abelardo Miller, was admitted to IMU Room 201-01. Patient/family oriented to hospital policies and general routines including ID bracelet, bed and alarms, visiting hours, pain management, procedures, bathroom and other care routines, personal items, smoking policy, room service/diet, and visiting hours. Information on how to activate the Rapid Response Team has been discussed. Patient/Family are encouraged to report perceived risks to care and to ask questions if they do not understand what they are told or what they should do.
[2020-06-09] MEDS: LACTATED RINGERS 1,000 ML 125 ML IV CONT (14:08)
--- NOTE | 2020-06-09 16:01 | PM.IMHP ---
H&P: HPI History of Present Illness Date/Time: 06/09/20 16:01 Chief Complaint: Alcohol withdrawal Narrative: Abelardo Miller is a 29 year old male with history of alcohol abuse patient drinks 1 L of vodka every day had been doing for sometime however he decided to stop drinking 4 days ago, states he developed shakes tremor nausea and vomiting and hallucinating, patient states he was not able to hold anything p.o., was not able to sleep, was anxious with tremor, he was seeing things crawling on the wall and presented emergency department further evaluation, patient was tachycardia, tremor and hallucinating, in the ER patient was given Ativan and Librium and placed on IV hydration as well as thaimin, will start the patient on Librium 50 mg every 6 hours and taper 25 mg every 6 hours after 24 hours, currently patient states is feeling little better compared to when he arrived. Patient last drinks was 4 days ago and his alcohol level is less than 10 most likely patient is and the tail end of DT. Patient with hyponatremia most likely secondary to alcohol abuse, Will continue to monitor with CIWA protocol and further recommendation to follow. Review of Systems Review of Systems: All systems reviewed & are unremarkable except as noted in HPI and below PMFSH Past Medical History Medical History (Updated 06/09/20 @ 09:21 by Dom Woodson DO) Patient denies medical problems Surgical History Surgical History No significant past surgical history Family History Family History Other Diabetes mellitus Elevated lipids Hypertension Social History Social History Social History: The patient was positive for marijuana and told ear that he does binge drink for a month at a time and drinks about 1 and half pt of liquor a day When he binge drinks. Patient is listed as a full code. Smoking status: Light tobacco smoker Tobacco type: cigarettes Second hand tobacco smoke exposure: No Additional smoking assessment comments: very rarely Alcohol intake: current Drinks per week: 7 Substance use: current Substance use type: marijuana Other substance usage details: very rarely Gender identity (if verbalized by the patient): Male Spiritual care concerns: No Meds Home Medications and Allergies Home Medications Medication Instructions Recorded Confirmed Type No Home Medications 06/09/20 06/09/20 History Allergies Allergy/AdvReac Type Severity Reaction Status Date / Time No Known Allergies Allergy Mild Verified 06/09/20 10:36 Vital Signs Vital Signs - 24 hr 06/09/20 06:28 06/09/20 06:53 06/09/20 07:36 Temperature 98.5 F Pulse Rate 121 H 101 H 100 Pulse Rate [Bilateral Pedal (Dorsalis Pedis)] Respiratory Rate 12 13 18 Blood Pressure 149/84 H 105/78 Pulse Oximetry 100 99 06/09/20 07:37 06/09/20 07:45 06/09/20 07:46 Temperature Pulse Rate 99 108 H 111 H Pulse Rate [Bilateral Pedal (Dorsalis Pedis)] Respiratory Rate 18 20 21 H Blood Pressure 148/109 H 129/115 H Pulse Oximetry 99 06/09/20 08:00 06/09/20 08:01 06/09/20 08:15 Temperature Pulse Rate 105 H 113 H 107 H Pulse Rate [Bilateral Pedal (Dorsalis Pedis)] Respiratory Rate 19 18 21 H Blood Pressure 134/95 H Pulse Oximetry 100 100 99 06/09/20 08:16 06/09/20 08:17 06/09/20 08:30 Temperature Pulse Rate 109 H 107 H 108 H Pulse Rate [Bilateral Pedal (Dorsalis Pedis)] Respiratory Rate 19 17 21 H Blood Pressure 128/86 Pulse Oximetry 100 99 99 06/09/20 08:31 06/09/20 08:45 06/09/20 08:46 Temperature Pulse Rate 101 H 101 H 100 Pulse Rate [Bilateral Pedal (Dorsalis Pedis)] Respiratory Rate 19 18 16 Blood Pressure 135/91 H 131/92 H Pulse Oximetry 100 100 100 06/09/20 09:00 06/09/20 09:01 06/09/20 10:00 Temper
[2020-06-09] MEDS: THIAMINE HCL INJ 100 MG, FOLIC ACID INJ 1 MG, MULTIVITAMINS-12 INJ VIAL 1 5 ML, MULTIVI... IV CONT (18:09)
[2020-06-10] VITALS (19 sets, daily range): BP systolic 123–155; BP diastolic 74–111; PULSE 70–89; RESP 16–23; TEMP 36.6–36.9; O2SAT 97–100
[2020-06-10] MEDS: LORazepam INJ (*CRX) 2 MG/ML VIAL 1 MG IV PUSH ×6 (00:13→20:34)
--- NOTE | 2020-06-10 01:28 | P.PNCROSS_ITS ---
Event Note Event Note Event Note: CODE PURPLE NOTE Called to bedside via Code Purple. This 29 year old who is here being treated for acute alcohol withdrawal had become combative and trying to get out of bed. Nursing staff informed me that the patient had a CIWA score >25 and was hallucinating. On my encounter with him, he wouldn't listen to me and continued to try to get out of bed despite being treated with extra IV ativan. At this time we will transfer the patient to ICU for a precedex IV drip and closer monitoring. I have consulted our Appellate Court Judge and discussed the case in detail with him and he is in agreement.
--- NOTE | 2020-06-10 02:25 | PC.NURSE ---
This patient, Abelardo Miller, was transferred to [icu 4 ] on 06/10/20 at 0225. Personal belongings sent with patient. Report given to [Omero espinosa ]. Appropriate documentation sent with patient.
[2020-06-10] MEDS: dexmedeTOMIDine 400 MCG/100 ML 400 MCG/100 ML BAG 14.68 MCG IV CONT (02:32)
[2020-06-10] MEDS: LACTATED RINGERS 1,000 ML 125 ML IV CONT ×2 (05:23→13:21)
[2020-06-10 05:42] LABS: Basophils Percent Auto 0.6 % (0.2-1.2); Eosinophils Absolute Auto 0.1 K/mm3 (0-0.3); Eosinophils Percent Auto 1.5 % (0-4.4); Hematocrit 39.2 % (42.0-52.0); Hemoglobin 13.4 g/dL (14.0-18.0); Immature Granulocyte Absolute 0.01 K/mm3 (0.00-0.031); Immature Granulocyte Percent A 0.3 % (0-0.5); Immature Platelet Fraction Pct 9.8 % (0.9-11.2); Lymphocytes Absolute Auto 0.57 K/mm3 (0.9-3.2); Lymphocytes Percent Auto 16.6 % (18.3-44.2); Mean Corpuscular HGB Conc 34.2 g/dl (32-36); Mean Corpuscular Volume 93.6 fl (80-100); Mean Platelet Volume 11.5 fl (7.4-10.4); Monocytes Absolute Auto 0.6 K/mm3 (0.1-0.6); Neutrophils Absolute Auto 2.2 K/mm3 (1.3-6.7); Platelet Count Result 90 k/mm3 (150-375); Red Blood Count 4.19 M/mm3 (4.6-6.20); Red Cell Distribution Width 12.8 % (11.5-14.5); White Blood Count 3.4 K/mm3 (4.5-10.0)
[2020-06-10 05:46] LABS: Magnesium 2.2 mg/dL (1.6-2.3)
[2020-06-10 05:53] LABS: Alanine Aminotransferase 101 U/L (4-50); Albumin Level 4.2 g/dL (3.5-5.1); Alkaline Phosphatase 42 U/L (38-126); Anion Gap 10 mmol/L (8-16); Aspartate Amino Transferase 147 U/L (17-59); Bilirubin,Total 0.7 mg/dL (0.2-1.3); Blood Urea Nitrogen 9 mg/dL (9-20); Calcium 9.2 mg/dL (8.4-10.2); Carbon Dioxide 24 mmol/L (22-30); Chloride 100 mmol/L (98-107); Estimated CRCL calculation 180 ml/min; Estimated Glomerular Filt Rate > 60; Glucose 141 mg/dL (75-110); Potassium 3.4 mmol/L (3.4-5.0); Sodium 134 mmol/L (137-145)
[2020-06-10] MEDS: hydrALAZINE HCL 20 MG/ML VIAL 10 MG IV PUSH (07:56)
[2020-06-10] MEDS: chlordiazePOXIDE (*CRX) 25 MG CAPSULE PO ×3 (09:50→22:03)
[2020-06-10] MEDS: dexmedeTOMIDine 400 MCG/100 ML 400 MCG/100 ML BAG 12.59 MCG IV CONT (10:34)
--- NOTE | 2020-06-10 11:28 | WPDCNINT ---
Assessment and Plan Assessment and plan (1) Alcohol withdrawal: Code(s): F10.239 - Alcohol dependence with withdrawal, unspecified Status: Acute Assessment and Plan: Patient tremulous, 100 and visual hallucinations. Patient stop drinking 4 days prior to admission. Was diagnosed with alcohol withdrawal/DTs -now on Precedex infusion of to being combative on the medical floor -will add thiamine, folic acid, multivitamin -continue CIWA protocol -continue Librium -will gradually wean Precedex infusion (2) Nausea and vomiting: Code(s): R11.2 - Nausea with vomiting, unspecified Status: Acute Assessment and Plan: Resolved (3) Alcohol dependence with withdrawal: Code(s): F10.239 - Alcohol dependence with withdrawal, unspecified Status: Acute Assessment and Plan: Patient with alcohol dependence, -labs manifested elevated LFTs low platelet count, (4) Alcoholic ketoacidosis: Code(s): E87.2 - Acidosis Status: Acute Assessment and Plan: Resolved -patient was given adequate amount of fluids, Additional Plan Discussed with family and updated with patient's condition and plan of care. Code status: Full code Critical care time spent: 39 minutes Due to a high probability of clinically significant, life threatening deterioration, the patient required my highest level of preparedness to intervene emergently and I personally spent this critical care time directly and personally managing the patient. This critical care time included obtaining a history; examining the patient; pulse oximetry; ordering and review of studies; arranging urgent treatment with development of a management plan; evaluation of patient's response to treatment; frequent reassessment; and discussions with other providers. It was exclusive of separately billable procedures and treating other patients and teaching time. Please see Assessment and Plan section and the rest of the note for further information on patient assessment and treatment Legal Document Assistant Consult Note Consult date: 06/10/20 Time Seen: 07:10 Reason for consult: Alcohol withdrawal HPI: Abelardo iMller is a 29 year old male past medical history of patient drinks 1 L of vodka every day. Patient however decided to stop drinking about 4 days prior to admission wanted to quit drinking. Patient has been having some nausea, vomiting. Also noted to have visual and auditory hallucinations along with tremors. He was found to be in alcohol withdrawal and possible DTs in the ER. Was given adequate IV fluids Patient was transferred to the intermediate overnight there was a ?purple and patient became combative and trying to get out of bed. CIWA score > 25. He was also hallucinating, and would not listen to the physician other staff. Was given extra treatment with IV Ativan which was not helpful. Patient was transferred to the ICU for Precedex infusion. Patient seen and examined this morning, is awake, alert, follows simple commands in assist questions with yes and no. Patient remains on Precedex infusion at 0.7 mcg. Also on Librium. Urine output has been adequate, patient is hemodynamically stable, adequate O2 sats on room air. Patient denies any chest pain, shortness of breath, abdominal pain, nausea vomiting at this time Review of Systems Review of Systems: All systems reviewed & are unremarkable except as noted in HPI and below PMFSH Past Medical History Medical History (Updated 06/09/20 @ 09:21 by Dom Woodson DO) Patient denies medical problems Surgical History Surgical History No significant past surgical history Family History Family History Other Diabetes mellitus Elevated lipids Hypertension Social History Social History Social History: [facility]
[2020-06-10] MEDS: SODIUM CHLORIDE 0.9% IV 1,000 ML 999 ML IV CONT (11:43)
[2020-06-10] MEDS: THIAMINE HCL INJ 100 MG, FOLIC ACID INJ 1 MG, MULTIVITAMINS-12 INJ VIAL 1 5 ML, MULTIVI... IV CONT (17:17)
[2020-06-11] VITALS (12 sets, daily range): BP systolic 121–170; BP diastolic 85–114; PULSE 71–100; RESP 13–20; TEMP 36.3–37.1; O2SAT 95–100
[2020-06-11] MEDS: LORazepam INJ (*CRX) 2 MG/ML VIAL 1 MG IV PUSH ×3 (00:24→10:11)
[2020-06-11 00:33] LABS: Glucose Point of Care 107 (65-105)
[2020-06-11] MEDS: dexmedeTOMIDine 400 MCG/100 ML 400 MCG/100 ML BAG IV CONT (03:52)
[2020-06-11] MEDS: chlordiazePOXIDE (*CRX) 25 MG CAPSULE PO ×2 (03:55→09:00)
[2020-06-11 04:56] LABS: Basophils Percent Auto 0.7 % (0.2-1.2); Eosinophils Absolute Auto 0.1 K/mm3 (0-0.3); Eosinophils Percent Auto 2.7 % (0-4.4); Hemoglobin 12.9 g/dL (14.0-18.0); Immature Granulocyte Absolute 0.01 K/mm3 (0.00-0.031); Immature Granulocyte Percent A 0.2 % (0-0.5); Immature Platelet Fraction Pct 8.9 % (0.9-11.2); Lymphocytes Absolute Auto 0.75 K/mm3 (0.9-3.2); Lymphocytes Percent Auto 18.3 % (18.3-44.2); Mean Corpuscular HGB Conc 33.9 g/dl (32-36); Mean Corpuscular Hemoglobin 32.8 pg (26-34); Mean Corpuscular Volume 96.7 fl (80-100); Mean Platelet Volume 11.2 fl (7.4-10.4); Monocytes Absolute Auto 0.5 K/mm3 (0.1-0.6); Monocytes Percent Auto 12.7 % (2.6-8.5); Neutrophils Absolute Auto 2.7 K/mm3 (1.3-6.7); Neutrophils Percent Auto 65.4 % (45.5-73.1); Platelet Count Result 90 k/mm3 (150-375); Red Blood Count 3.93 M/mm3 (4.6-6.20); Red Cell Distribution Width 12.8 % (11.5-14.5); White Blood Count 4.1 K/mm3 (4.5-10.0)
[2020-06-11 05:07] LABS: Alanine Aminotransferase 105 U/L (4-50); Albumin Level 3.6 g/dL (3.5-5.1); Alkaline Phosphatase 40 U/L (38-126); Anion Gap 6 mmol/L (8-16); Aspartate Amino Transferase 125 U/L (17-59); Bilirubin,Total 0.6 mg/dL (0.2-1.3); Blood Urea Nitrogen 7 mg/dL (9-20); Calcium 8.8 mg/dL (8.4-10.2); Carbon Dioxide 28 mmol/L (22-30); Chloride 102 mmol/L (98-107); Estimated CRCL calculation 180 ml/min; Estimated Glomerular Filt Rate > 60; Glucose 94 mg/dL (75-110); Magnesium 2.1 mg/dL (1.6-2.3); Phosphorus 3.2 mg/dL (2.5-4.5); Potassium 3.2 mmol/L (3.4-5.0); Sodium 136 mmol/L (137-145)
[2020-06-11] MEDS: LACTATED RINGERS 1,000 ML 75 ML IV CONT (08:21)
[2020-06-11] MEDS: POTASSIUM CHLORIDE 20 MEQ TABLET 40 MEQ PO (08:35)
[2020-06-11] MEDS: chlordiazePOXIDE (*CRX) 25 MG CAPSULE 50 MG PO ×2 (11:08→17:21)
--- NOTE | 2020-06-11 12:31 | WPDINTPN ---
Progress Note: A&P Assessment and Plan (1) Alcohol withdrawal: Code(s): F10.239 - Alcohol dependence with withdrawal, unspecified Status: Acute Assessment and Plan: Patient tremulous, 100 and visual hallucinations. Patient stop drinking 4 days prior to admission. Was diagnosed with alcohol withdrawal/DTs -OFF precedex infusion -contiue thiamine, folic acid, multivitamin -continue [facility] protocol - increase Librium -ativan PRN (2) Nausea and vomiting: Code(s): R11.2 - Nausea with vomiting, unspecified Status: Acute Assessment and Plan: Resolved (3) Alcohol dependence with withdrawal: Code(s): F10.239 - Alcohol dependence with withdrawal, unspecified Status: Acute Assessment and Plan: Patient with alcohol dependence, -labs manifested elevated LFTs low platelet count, counseled pt on abstaining from drinking alcohol (4) Alcoholic ketoacidosis: Code(s): E87.2 - Acidosis Status: Acute Assessment and Plan: Resolved -patient was given adequate amount of fluids, Additional Plan Discussed with family and updated with patient's condition and plan of care. Code status: Full code Critical care time spent: 31 minutes Due to a high probability of clinically significant, life threatening deterioration, the patient required my highest level of preparedness to intervene emergently and I personally spent this critical care time directly and personally managing the patient. This critical care time included obtaining a history; examining the patient; pulse oximetry; ordering and review of studies; arranging urgent treatment with development of a management plan; evaluation of patient's response to treatment; frequent reassessment; and discussions with other providers. It was exclusive of separately billable procedures and treating other patients and teaching time. Please see Assessment and Plan section and the rest of the note for further information on patient assessment and treatment Subjective Date/time seen: 06/11/20 12:31 Interval history: Reason for consult: Alcohol withdrawal 06/11/2020: Patient examined this morning, patient is off Precedex infusion. This,, slightly tremulous. Pt tolerating PO diet. Good UO. On IV fluids. No issues overnight Review of Systems Review of Systems: All systems reviewed & are unremarkable except as noted in HPI and below Exam Const: General: comfortable and no acute distress HENMT: Mouth: Yes moist mucous membranes Eyes: Sclera: sclerae normal Pupils: Equal, round and reactive pupils present Neck: Neck: supple Resp: Effort & Inspection: normal respiratory effort Auscultation: clear to auscultation bilaterally Cardio: Rate: regular rate Rhythm: regular rhythm GI: Inspection: non-distended GI Palp: Yes Soft to palpation and No Tenderness to palpation present (GI) Auscultation: normal bowel sounds Urinary Catheter: Urinary Catheter: urine clear Skin: General skin exam: normal color and no rashes or lesions noted Neuro: Cranial nerves: Yes Equal, round and reactive pupils present Other: Patient is awake, alert, orally answers questions with a yes or no. Follows commands in all extremities Extrem: General: normal to inspection and exam abnormal as noted Psych: Other: Patient is somnolent Objective Data Vital Signs Vital Signs: Vital Signs - 24 hr 06/10/20 12:46 06/10/20 13:07 06/10/20 14:40 Temperature 98.2 F Pulse Rate 73 73 80 Pulse Rate [Bilateral Pedal (Dorsalis Pedis)] Respiratory Rate 18 18 20 Blood Pressure 135/93 H Pulse Oximetry 98 06/10/20 15:20 06/10/20 15:39 06/10/20 17:11 Temperature 97.9 F 98.4 F Pulse Rate 74 74 81 Pulse Rate [Bilateral Pedal (Dorsalis Pedis)] 74 Respiratory Rate 16 18 20 Blood Pressure 123/74 125/80 Pulse Oximetry 97 98 06/10/20 20:00 06/10/20 22:00 06/11/20 00:00 Temperature 98.5 F 98.6 F Pulse Rate 77 87 72 Pulse Rate [Bilatera
--- NOTE | 2020-06-11 12:42 | PC.NURSE ---
This patient, Abelardo Miller, was received from ICU on 06/11/20 at 1242. Patient oriented to unit policies and routines
--- NOTE | 2020-06-11 12:43 | PC.NURSE ---
This patient, Abelardo Miller, was transferred to [facility] on 06/11/20 at 1243. Personal belongings sent with patient. Report given to kenisha. Appropriate documentation sent with patient.
--- NOTE | 2020-06-11 16:31 | PM.IMPN ---
Progress Note: A&P Assessment and Plan (1) Alcohol withdrawal: Code(s): F10.239 - Alcohol dependence with withdrawal, unspecified Status: Acute Assessment and Plan: 06/11/20 16:31 Abelardo Miller is a 29 year old male with history of alcohol abuse patient drinks 1 L of vodka every day had been doing for sometime however he decided to stop drinking 4 days ago, states he developed shakes tremor nausea and vomiting and hallucinating, patient states he was not able to hold anything p.o., was not able to sleep, was anxious with tremor, he was seeing things crawling on the wall and presented emergency department further evaluation, patient was tachycardia, tremor and hallucinating, in the ER patient was given Ativan and Librium and placed on IV hydration as well as thaimin, will start the patient on Librium 50 mg every 6 hours and taper 25 mg every 6 hours after 24 hours, currently patient states is feeling little better compared to when he arrived. Patient last drinks was 4 days ago and his alcohol level is less than 10 most likely patient is and the tail end of DT. Patient with hyponatremia most likely secondary to alcohol abuse, Will continue to monitor with CIWA protocol and further recommendation to follow. On master certified rv technician of 06/10 patient's symptoms got worse he was hallucinating, combative and not listening to medical staff, patient was transferred to ICU and Precedex of started, today patient symptoms have improved and patient is out of ICU on medical floor, CIWA protocol was continued patient is on Librium 50 mg q.6, patient states feeling much better denies any abdominal pain nausea or vomiting, is eating his lunch, will continue to monitor will taper Librium tomorrow to 25 mg every 6 hours if remains clinically stable will do the discharge planning (2) Alcoholic ketoacidosis: Code(s): E87.2 - Acidosis Status: Acute Assessment and Plan: Most likely secondary to alcohol abuse in withdrawal will continue hydrate the patient and monitor (3) Nausea and vomiting: Code(s): R11.2 - Nausea with vomiting, unspecified Status: Acute Assessment and Plan: Secondary to alcohol abuse and withdrawal will continue antiemetic and hydration (4) Hyponatremia: Code(s): E87.1 - Hypo-osmolality and hyponatremia Status: Acute Assessment and Plan: Most likely secondary to alcohol abuse and dehydration will continue to hydrate the patient and monitor Subjective Date/time seen: 06/11/20 16:31 Abelardo Miller is a 29 year old male with history of alcohol abuse patient drinks 1 L of vodka every day had been doing for sometime however he decided to stop drinking 4 days ago, states he developed shakes tremor nausea and vomiting and hallucinating, patient states he was not able to hold anything p.o., was not able to sleep, was anxious with tremor, he was seeing things crawling on the wall and presented emergency department further evaluation, patient was tachycardia, tremor and hallucinating, in the ER patient was given Ativan and Librium and placed on IV hydration as well as thaimin, will start the patient on Librium 50 mg every 6 hours and taper 25 mg every 6 hours after 24 hours, currently patient states is feeling little better compared to when he arrived. Patient last drinks was 4 days ago and his alcohol level is less than 10 most likely patient is and the tail end of DT. Patient with hyponatremia most likely secondary to alcohol abuse, Will continue to monitor with CIWA protocol and further recommendation to follow. On master certified rv technician of 06/10 patient's symptoms got worse he was hallucinating, combative and not listening to medical staff, patient was transferred to ICU and Precedex of started, today patient symptoms have improved and patient is out of ICU on medical floor, CIWA protocol was continued patient is on Librium 50 mg q.6, patient states feeling much better denies any abdominal pain
[2020-06-11] MEDS: THIAMINE HCL INJ 100 MG, FOLIC ACID INJ 1 MG, MULTIVITAMINS-12 INJ VIAL 1 5 ML, MULTIVI... IV CONT (17:22)
[2020-06-12] VITALS: BP 154/108; PULSE 92; RESP 20; TEMP 36.4; O2SAT 100
[2020-06-12] MEDS: chlordiazePOXIDE (*CRX) 25 MG CAPSULE 50 MG PO ×3 (01:16→11:30)
[2020-06-12 04:41] VITALS: BP 147/100; PULSE 100; RESP 20; TEMP 36.6; O2SAT 100
[2020-06-12 06:00] LABS: Hematocrit 39.8 % (42.0-52.0); Immature Platelet Fraction Pct 10.1 % (0.9-11.2); Mean Corpuscular HGB Conc 35.2 g/dl (32-36); Mean Corpuscular Hemoglobin 33.8 pg (26-34); Mean Corpuscular Volume 96.1 fl (80-100); Mean Platelet Volume 11.1 fl (7.4-10.4); Platelet Count Result 120 k/mm3 (150-375); Red Blood Count 4.14 M/mm3 (4.6-6.20); Red Cell Distribution Width 12.8 % (11.5-14.5); White Blood Count 4.2 K/mm3 (4.5-10.0)
[2020-06-12 06:11] LABS: Alanine Aminotransferase 121 U/L (4-50); Albumin Level 4.1 g/dL (3.5-5.1); Alkaline Phosphatase 44 U/L (38-126); Anion Gap 6 mmol/L (8-16); Aspartate Amino Transferase 127 U/L (17-59); Bilirubin,Total 0.4 mg/dL (0.2-1.3); Blood Urea Nitrogen 8 mg/dL (9-20); Calcium 9.5 mg/dL (8.4-10.2); Carbon Dioxide 31 mmol/L (22-30); Chloride 102 mmol/L (98-107); Estimated CRCL calculation 156 ml/min; Estimated Glomerular Filt Rate > 60; Glucose 102 mg/dL (75-110); Magnesium 2.3 mg/dL (1.6-2.3); Potassium 3.6 mmol/L (3.4-5.0); Sodium 139 mmol/L (137-145)
[2020-06-12] MEDS: POTASSIUM CHLORIDE 20 MEQ TABLET 40 MEQ PO (08:47)
--- NOTE | 2020-06-12 13:34 | PM.IMPN ---
Progress Note: A&P Assessment and Plan (1) Alcohol withdrawal: Code(s): F10.239 - Alcohol dependence with withdrawal, unspecified Status: Acute Assessment and Plan: 06/12/20 13:34 Abelardo Miller is a 29 year old male with history of alcohol abuse patient drinks 1 L of vodka every day had been doing for sometime however he decided to stop drinking 4 days ago, states he developed shakes tremor nausea and vomiting and hallucinating, patient states he was not able to hold anything p.o., was not able to sleep, was anxious with tremor, he was seeing things crawling on the wall and presented emergency department further evaluation, patient was tachycardia, tremor and hallucinating, in the ER patient was given Ativan and Librium and placed on IV hydration as well as thaimin, will start the patient on Librium 50 mg every 6 hours and taper 25 mg every 6 hours after 24 hours, currently patient states is feeling little better compared to when he arrived. Patient last drinks was 4 days ago and his alcohol level is less than 10 most likely patient is and the tail end of DT. Patient with hyponatremia most likely secondary to alcohol abuse, Will continue to monitor with CIWA protocol and further recommendation to follow. On caterpillar operator of 06/10 patient's symptoms got worse he was hallucinating, combative and not listening to medical staff, patient was transferred to ICU and Precedex of was started, 06/11 patient symptoms had improved and patient was transferred out of ICU on medical floor, CIWA protocol was continued patient is on Librium 50 mg q.6, patient states feeling much better denies any abdominal pain nausea or vomitin and was able to tolerate his diet. 06/12 today patient is clinically stable, able to ambulate in the room without any difficulty, he is able to tolerated his diet, will taper Librium to 26mg PO q6, will have PT evaluate and patient if remains clinically stable,will discharge home tomorrow (2) Alcoholic ketoacidosis: Code(s): E87.2 - Acidosis Status: Acute Assessment and Plan: Most likely secondary to alcohol abuse in withdrawal will continue hydrate the patient and monitor (3) Nausea and vomiting: Code(s): R11.2 - Nausea with vomiting, unspecified Status: Acute Assessment and Plan: Secondary to alcohol abuse and withdrawal will continue antiemetic and hydration (4) Hyponatremia: Code(s): E87.1 - Hypo-osmolality and hyponatremia Status: Acute Assessment and Plan: Most likely secondary to alcohol abuse and dehydration will continue to hydrate the patient and monitor Subjective Date/time seen: 06/12/20 13:34 Abelardo Miller is a 29 year old male with history of alcohol abuse patient drinks 1 L of vodka every day had been doing for sometime however he decided to stop drinking 4 days ago, states he developed shakes tremor nausea and vomiting and hallucinating, patient states he was not able to hold anything p.o., was not able to sleep, was anxious with tremor, he was seeing things crawling on the wall and presented emergency department further evaluation, patient was tachycardia, tremor and hallucinating, in the ER patient was given Ativan and Librium and placed on IV hydration as well as thaimin, will start the patient on Librium 50 mg every 6 hours and taper 25 mg every 6 hours after 24 hours, currently patient states is feeling little better compared to when he arrived. Patient last drinks was 4 days ago and his alcohol level is less than 10 most likely patient is and the tail end of DT. Patient with hyponatremia most likely secondary to alcohol abuse, Will continue to monitor with CIWA protocol and further recommendation to follow. On caterpillar operator of 06/10 patient's symptoms got worse he was hallucinating, combative and not listening to medical staff, patient was transferred to ICU and Precedex of was started, 06/11 patient symptoms had improved and patient was
[2020-06-12 14:00] VITALS: BP 159/108; PULSE 77; RESP 20; TEMP 35.8; O2SAT 100
[2020-06-12] MEDS: THIAMINE HCL INJ 100 MG, FOLIC ACID INJ 1 MG, MULTIVITAMINS-12 INJ VIAL 1 5 ML, MULTIVI... IV CONT (17:56)
[2020-06-12 20:00] VITALS: PULSE 77; RESP 20; O2SAT 100
[2020-06-12 21:51] VITALS: BP 139/99; PULSE 74; RESP 20; TEMP 36.1; O2SAT 100
[2020-06-13 04:58] VITALS: BP 160/100; PULSE 72; RESP 18; TEMP 36.4; O2SAT 99
[2020-06-13 05:36] LABS: Hematocrit 39.1 % (42.0-52.0); Hemoglobin 13.3 g/dL (14.0-18.0); Mean Platelet Volume 10.7 fl (7.4-10.4); Platelet Count Result 127 k/mm3 (150-375); Red Blood Count 4.03 M/mm3 (4.6-6.20); Red Cell Distribution Width 12.8 % (11.5-14.5); White Blood Count 4.2 K/mm3 (4.5-10.0)
[2020-06-13 05:45] LABS: Alanine Aminotransferase 129 U/L (4-50); Alkaline Phosphatase 43 U/L (38-126); Anion Gap 8 mmol/L (8-16); Aspartate Amino Transferase 117 U/L (17-59); Bilirubin,Total 0.4 mg/dL (0.2-1.3); Blood Urea Nitrogen 7 mg/dL (9-20); Calcium 9.2 mg/dL (8.4-10.2); Carbon Dioxide 29 mmol/L (22-30); Chloride 101 mmol/L (98-107); Estimated CRCL calculation 157 ml/min; Estimated Glomerular Filt Rate > 60; Glucose 140 mg/dL (75-110); Magnesium 2.1 mg/dL (1.6-2.3); Potassium 3.9 mmol/L (3.4-5.0); Sodium 138 mmol/L (137-145)
[2020-06-13] MEDS: amLODIPine BESYLATE 5 MG TABLET PO (09:08)
--- NOTE | 2020-06-13 10:44 | PM.DS ---
DS: Admitting Diagnosis Admitting Diagnosis Admitting Diagnosis: Alcohol withdrawal DS: Discharge Diagnosis Discharge Diagnosis (1) Alcohol withdrawal: Code(s): F10.239 - Alcohol dependence with withdrawal, unspecified Status: Acute Assessment and Plan: 06/12/20 13:34 Abelardo Miller is a 29 year old male with history of alcohol abuse patient drinks 1 L of vodka every day had been doing for sometime however he decided to stop drinking 4 days ago, states he developed shakes tremor nausea and vomiting and hallucinating, patient states he was not able to hold anything p.o., was not able to sleep, was anxious with tremor, he was seeing things crawling on the wall and presented emergency department further evaluation, patient was tachycardia, tremor and hallucinating, in the ER patient was given Ativan and Librium and placed on IV hydration as well as thaimin, will start the patient on Librium 50 mg every 6 hours and taper 25 mg every 6 hours after 24 hours, currently patient states is feeling little better compared to when he arrived. Patient last drinks was 4 days ago and his alcohol level is less than 10 most likely patient is and the tail end of DT. Patient with hyponatremia most likely secondary to alcohol abuse, Will continue to monitor with CIWA protocol and further recommendation to follow. On lead designer of 06/10 patient's symptoms got worse he was hallucinating, combative and not listening to medical staff, patient was transferred to ICU and Precedex of was started, 06/11 patient symptoms had improved and patient was transferred out of ICU on medical floor, CIWA protocol was continued patient is on Librium 50 mg q.6, patient states feeling much better denies any abdominal pain nausea or vomitin and was able to tolerate his diet. 06/12 today patient is clinically stable, able to ambulate in the room without any difficulty, he is able to tolerated his diet, will taper Librium to 26mg PO q6, will have PT evaluate and patient if remains clinically stable,will discharge home tomorrow (2) Alcoholic ketoacidosis: Code(s): E87.2 - Acidosis Status: Acute Assessment and Plan: Most likely secondary to alcohol abuse in withdrawal will continue hydrate the patient and monitor (3) Nausea and vomiting: Code(s): R11.2 - Nausea with vomiting, unspecified Status: Acute Assessment and Plan: Secondary to alcohol abuse and withdrawal will continue antiemetic and hydration (4) Hyponatremia: Code(s): E87.1 - Hypo-osmolality and hyponatremia Status: Acute Assessment and Plan: Most likely secondary to alcohol abuse and dehydration will continue to hydrate the patient and monitor DS: Summary Hospital Course Reason for hospitalization: Chief Complaint: Alcohol withdrawal Narrative: Abelardo Miller is a 29 year old male with history of alcohol abuse patient drinks 1 L of vodka every day had been doing for sometime however he decided to stop drinking 4 days ago, states he developed shakes tremor nausea and vomiting and hallucinating, patient states he was not able to hold anything p.o., was not able to sleep, was anxious with tremor, he was seeing things crawling on the wall and presented emergency department further evaluation, patient was tachycardia, tremor and hallucinating, in the ER patient was given Ativan and Librium and placed on IV hydration as well as thaimin, will start the patient on Librium 50 mg every 6 hours and taper 25 mg every 6 hours after 24 hours, currently patient states is feeling little better compared to when he arrived. Patient last drinks was 4 days ago and his alcohol level is less than 10 most likely patient is and the tail end of DT. Patient with hyponatremia most likely secondary to alcohol abuse, Will continue to monitor with CIWA protocol and further recommendation to follow. Hospital Course: Abelardo Miller is a 29 year old male with history of alcoh
== END 2020-06-13 11:05 | disposition home or self-care (01) | DRG 775 ==
LOC: ANHED 07:02 → ANHIMU 08:49 → ANHICU 06-10 02:22 → ANH2MED 06-11 15:10
PROVIDERS: Internal Medicine; Admitting Provider Family Medicine; Emergency Provider Emergency Medicine; Referring Provider Family Medicine; Visit Provider Family Medicine
DX: F10.231 Alcohol dependence with withdrawal delirium (principal); F10.232 Alcohol dependence with withdrawal with perceptual disturbance; E87.2 Acidosis; E87.1 Hypo-osmolality and hyponatremia; F17.210 Nicotine dependence, cigarettes, uncomplicated
CPT/HCPCS: 36415; 80053; 80307; 81001; 83690; 83735; 84100; 85025; 85027; 85055; 85610; 85730; 87086; 96361; 96374; 96375; 99285; A9270; G0378; G0379; J0360; J2060; J2405; J3411; J3475; J7030; J7120

== ENCOUNTER 2021-01-06 05:32 | Observation (INO) | payer OTHER, SELFPAY ==
[2021-01-06] VITALS (16 sets, daily range): BP systolic 121–148; BP diastolic 70–121; PULSE 72–112; RESP 13–22; TEMP 36.1–37; O2SAT 96–100; BMI 20.7
--- NOTE | ~2021-01-06 | CT_ITS ---
EXAMINATION: CT brain wo con INDICATION: Altered mental status COMPARISON: 02/19/2020 TECHNIQUE: Standard unenhanced head CT. The dose-length product (DLP) was 605.33 mGy-cm. The mA was a djusted according to patient size. Iterative reconstruction technique was employed. FINDINGS: There is no intracranial hemorrhage, acute infarction, or abnormal mass lesion. The ventric les are normal. There is no abnormal mass effect or midline shift. The romo-white matter differentiat ion is normal. The basal cisterns are patent. The orbits are normal. The paranasal sinuses, mastoids and calvarium are normal. IMPRESSION: 1. No acute intracranial abnormality. Reviewed, dictated and finalized at location A.
--- NOTE | ~2021-01-06 | XR_ITS ---
EXAMINATION: [id number] INDICATION: Right-sided chest pain TECHNIQUE: A frontal view of the chest and 3 views of the right ribs were obtained. COMPARISON: None. FINDINGS: The lungs are free of acute opacities. There is no pleural effusion or pneumothorax. The ca rdiomediastinal silhouette is normal. There appear to be nondisplaced fractures of the right eighth a nd ninth ribs. IMPRESSION: 1. Likely nondisplaced right eighth and ninth rib fractures. 2. No acute cardiopulmonary abnormality. Reviewed, dictated and finalized at location A.
[2021-01-06 07:43] LABS: Basophils Percent Auto 0.4 % (0.2-1.2); Eosinophils Percent Auto 0.5 % (0-4.4); Hematocrit 39.6 % (42.0-52.0); Hemoglobin 13.6 g/dL (14.0-18.0); Immature Granulocyte Absolute 0.03 K/mm3 (0.00-0.031); Immature Granulocyte Percent A 0.4 % (0-0.5); Immature Platelet Fraction Pct 12.2 % (0.9-11.2); Lymphocytes Absolute Auto 0.65 K/mm3 (0.9-3.2); Lymphocytes Percent Auto 7.9 % (18.3-44.2); Mean Corpuscular HGB Conc 34.3 g/dl (32-36); Mean Corpuscular Volume 96.1 fl (80-100); Mean Platelet Volume 10.9 fl (7.4-10.4); Monocytes Absolute Auto 1.7 K/mm3 (0.1-0.6); Monocytes Percent Auto 20.3 % (2.6-8.5); Neutrophils Absolute Auto 5.8 K/mm3 (1.3-6.7); Neutrophils Percent Auto 70.5 % (45.5-73.1); Platelet Count Result 139 k/mm3 (150-375); Red Blood Count 4.12 M/mm3 (4.6-6.20); White Blood Count 8.2 K/mm3 (4.5-10.0)
[2021-01-06 07:52] LABS: Add Urine Microscopic? YES; Appearance Urine Clear (Clear); Bilirubin Urine Negative (Negative); Blood Urine Negative (Negative); Color Urine Yellow (Yellow); Glucose Urine UA Negative (Negative); Ketones Urine 1+ mg/dL (Negative); Leukocyte Esterase Ur Negative LEU/UL (Negative); Mucus Urine Rare /lpf; Nitrate Urine Negative (Negative); Protein Urine 2+ mg/dL (Negative); RBC Urine 0-2 /hpf (0-2); Specific Grav Ur 1.014 (1.001-1.035); Squamous Epithelial Cell Urine Rare /hpf (Few); Urobilinogen Urine Negative mg/dL (<2.0); WBC Urine 0-3 /hpf
[2021-01-06 07:52] LABS: Alanine Aminotransferase 141 U/L (4-50); Albumin Level 4.8 g/dL (3.5-5.1); Alkaline Phosphatase 62 U/L (38-126); Anion Gap 15 mmol/L (8-16); Aspartate Amino Transferase 205 U/L (17-59); Bilirubin,Total 1.2 mg/dL (0.2-1.3); Blood Urea Nitrogen 14 mg/dL (9-20); Calcium 10.2 mg/dL (8.4-10.2); Carbon Dioxide 26 mmol/L (22-30); Chloride 92 mmol/L (98-107); Estimated CRCL calculation 142 ml/min; Estimated Glomerular Filt Rate > 60; Glucose 84 mg/dL (65-110); Potassium 2.9 mmol/L (3.4-5.0); Sodium 133 mmol/L (137-145)
--- NOTE | 2021-01-06 08:34 | ED.GENADULT ---
HPI - General Adult General Chief complaint: Alcohol Stated complaint: alcohol withdrawl Time Seen by Provider: 01/06/21 07:00 History of Present Illness HPI narrative: Patient is a 30 y/o male complaining of alcohol withdrawal symptoms today. He states that he has some shaking and nausea. He denies any abdominal pain or vomiting. He states that his last drink was around 4:30 AM today. He also complains of some right chest wall pain for 1 week. He states that he may have slept on the couch wrong way. He is also complaining of having hallucinations. He is seeing a cat in the hat in the room. Related Data Allergies Allergy/AdvReac Type Severity Reaction Status Date / Time No Known Allergies Allergy Mild Verified 08/05/20 13:36 Review of Systems Constitutional: Constitutional: Denies chills, Denies fever(s), Denies headache(s) and Denies weakness Eyes: Eyes: Denies blurry vision ENT: Denies headache(s) and Denies neck pain Cardiovascular: Cardiovascular: Reports chest pain and Denies dyspnea Respiratory: Respiratory: Denies cough and Denies dyspnea Gastrointestinal: Gastrointestinal: Denies abdominal pain, Denies diarrhea, Reports nausea and Denies vomiting Genitourinary: Genitourinary: Denies hematuria and Denies dysuria Musculoskeletal: Musculoskeletal: Denies back pain and Denies neck pain Neurologic: Denies headache(s), Reports tremor(s) and Denies weakness Psychiatric: Psychiatric: Reports as per HPI and Reports visual hallucinations PMF Past Medical History Medical History ADHD Alcoholism Anxiety Back pain Hypertension Patient denies medical problems Surgical History Surgical History No significant past surgical history Family History Family History Other Diabetes mellitus Elevated lipids Hypertension Social History Social History Social History: The patient was positive for marijuana and told ear that he does binge drink for a month at a time and drinks about 1 and half pt of liquor a day When he binge drinks. Patient is listed as a full code. Tobacco type: cigarettes Second hand tobacco smoke exposure: No Additional smoking assessment comments: very rarely Alcohol intake: current Drinks per week: 7 Alcohol use details: Binges Substance use: current Substance use type: marijuana Other substance usage details: very rarely Gender identity (if verbalized by the patient): Male Spiritual care concerns: No Exam Const: General: no acute distress and well developed Orientation/consciousness: oriented to person, oriented to place, oriented to time and patient oriented x3 HENMT: Head: normocephalic Ears: external ears normal General nose exam: Normal external nose present Eyes: General: appearance normal, both eyes and all related structures Conjunctivae: conjunctivae normal Neck: Neck: normal visual inspection and full ROM Chest: Chest palpation & inspection: normal inspection of the chest and tenderness costochondral junction Resp: Effort & Inspection: normal respiratory effort Auscultation: clear to auscultation bilaterally Cardio: Rate: regular rate Rhythm: regular rhythm GI: GI Palp: No abdominal tenderness and Yes Soft to palpation Skin: General skin exam: normal color, turgor normal and ecchymosis (right anterior chest wall) Neuro: General: oriented to person, oriented to place, oriented to time and patient oriented x3 Cognition (Neuro): normal cognition Extrem: General: normal to inspection, full ROM and no pedal edema Psych: Appearance: grossly normal Mental Status: mental status grossly normal Affect: normal affect Course Consultations Consultation #1: Discussed with Dr. Myers, who agrees to admit. Date: 01/06/21 Time: 12:51 Vital
[2021-01-06] MEDS: SODIUM CHLORIDE 0.9% IV 1,000 ML 999 ML IV CONT (08:43)
--- NOTE | 2021-01-06 09:44 | PC.NURSE ---
This RN into pts room. PT informs this RN that there are 2 cats in room. One is in the corner with a sparkly wizard hat playing the banjo. and the other one is a black cat
--- NOTE | 2021-01-06 12:08 | ECG_ITS ---
Measurements Intervals [place] Rate: 84 P: 49 SD: 152 QRS: 69 QRSD: 93 T: 47 QT: 363 QTc: 430 Interpretive Statements SINUS RHYTHM ST ELEVATION IN DIFFUSE LEADS- PROBABLY EARLY REPOLARIZATION ABNORMALITY BASELINE ARTIFACT- I, II, III, AVR, AVL, AVF, V1-V6 BORDERLINE ECG Electronically Signed On 01-06-2021 13:12:01 CDT by Rudolph Stahl D.O.
[2021-01-06] MEDS: chlordiazePOXIDE (*CRX) 25 MG CAPSULE PO (12:46)
--- NOTE | 2021-01-06 13:29 | PC.NURSE ---
This RN into pts room. Pt has changed out of hospital gown and has taken out his own IV. Pt states his team needs him and he has to go . in room at this time. PT tells that when the team calls you have to go. If I dont go bombs will go off and people with . This is not a video game . Dr. Raphael informed pt that if he wants to leave he will have to sign out AMA. Pt states he is eating his salad and then will call around for a ride. Informed pt that i will be back to see what he is going to do.
[2021-01-06] MEDS: POTASSIUM CHLORIDE 20 MEQ TABLET 40 MEQ PO (13:32)
--- NOTE | 2021-01-06 14:13 | PC.NURSE ---
Called to give report. Spoke with Poonam and was told that the nurse is off floor and will call me when she gets back on floor.
--- NOTE | 2021-01-06 14:39 | PC.NURSE ---
Per Dr. Raphael no does of Ativan was only as needed. Pt did not receive Ativan while in this ED Pts CIWA score is 32. Charge nurse informed of this
--- NOTE | 2021-01-06 15:08 | PM.IMHP ---
H&P: HPI History of Present Illness Date/Time: 01/06/21 15:08 Chief Complaint: hallucinating Narrative: 30-year-old male with past medical history of hypertension, depression and alcoholism who presented to the ER after he was found sleeping on a neighbor's porch. When the police were called the patient was given the option to come to the ER for evaluation or to go to [facility]. On arrival to the ER the patient was hallucinating and seeing the Cat in the hat in the room. The patient was given a dose of p.o. Librium. His last drink was reportedly at 4:30 a.m. in the morning on the 06 of January. He reported that he had decreased the amount he had been drinking for couple of days but broke down and had some alcohol this morning. At the time of my evaluation the patient is frankly tremulous, agitated and pacing in the room. He has picked up the phone and tried to call in [facility] multiple times that he is convinced that if he does not notify someone that a vomits going to explode in people are going to . While I was discussing his recent history with him the patient looked over to the corner of the room and asked his hallucination when he hurt his ribs. The patient reports that he has right rib pain. In the ER at x-ray was performed which demonstrated 2 broken ribs. The area over the site of fracture demonstrates an old bruise that is almost completely resolved. The patient does not recall if he had actually fallen or how he actually broke his ribs. He denies any recent head injury. He had a CT scan of the head in the ER which was negative for acute process. The patient reports that he is nauseated every day and frequently has episodes of vomiting. He has not vomited since he arrived in the ER. He is oriented to person, place and month but thought the year was 2000. He has had multiple hospitalizations in the past for alcohol withdrawal with his most recent hospitalization being June 2000. He reports that he drinks about a Liter of alcohol a day. He denies any recent illicit substance use but has used LSD, cocaine, and marijuana in the past. The ER did not perform a urine drug screen. Review of Systems Review of Systems: 12 systems were reviewed with pertinent positives and negatives per HPI. Except as documented in the HPI, all other systems were reviewed and are negative. [facility] Past Medical History Medical History (Updated 01/06/21 @ 15:55 by Livier Myers DO) ADHD Alcoholic peripheral neuropathy Alcoholism Anxiety Back pain Hypertension Surgical History Surgical History (Updated 01/06/21 @ 15:40 by Livier Myers DO) History of skin graft Family History Family History (Updated 01/06/21 @ 15:47 by Livier Myers DO) Grandparent Diabetes mellitus Elevated lipids Hypertension Father Heart disease Hypertension Mother Rheumatoid arthritis Social History Social History (Updated 01/06/21 @ 15:48 by Livier Myers DO) Social History: The patient was positive for marijuana. he admits to prior use of cocaine, LSD as well. He reports to me that he drinks a Liter of alcohol a day he reported the nursing staff he drinks up to a gallon of alcohol a day. He has drank heavily since his early teenage years. He occasionally smokes tobacco. Smoking status: Unknown if ever smoked Tobacco type: cigarettes Second hand tobacco smoke exposure: No Additional smoking assessment comments: very rarely Alcohol intake: current Drinks per week: 7 Alcohol use details: Binges Substance use: current Substance use type: marijuana Other substance usage details: very rarely Last use: Patient states he drinks one gallon a day . Pt will not elaborate further. Gender identity (if verbalized by the patient): Male Spiritual care concerns: No Meds Home Medications and Allergies Home Medications Medication Instructions Recorded Confirmed Type sertraline 50 mg tablet 50 mg PO DA
[2021-01-06] MEDS: LORazepam INJ (*CRX) 2 MG/ML VIAL IV PUSH ×4 (15:10→22:59)
[2021-01-06] MEDS: chlordiazePOXIDE (*CRX) 25 MG CAPSULE 100 MG PO (15:10)
[2021-01-06] MEDS: diazePAM INJ (*CRX) 10 MG/2 ML SYRINGE IV PUSH (15:36)
[2021-01-06 16:21] LABS: Ethanol < 10 mg/dL (<10)
[2021-01-06] MEDS: SODIUM CHLORIDE 0.9% IV 1,000 ML 150 ML IV CONT ×2 (16:24→22:58)
[2021-01-06] MEDS: THIAMINE HCL 200 MG/2 ML VIAL 100 MG IV PUSH (17:19)
[2021-01-06 20:00] LABS: Amphetamine Screen Urine Negative (Negative); Barbiturate Screen Urine Negative (Negative); Benzodiazepines Screen Urine Positive (Negative); Cannabinoid Screen Urine Negative (Negative); Cocaine Screen Urine Negative (Negative); Methadone Screen Urine Negative (Negative); Opiate Screen Urine Negative (Negative); Phencyclidine Screen Urine Negative (Negative)
[2021-01-06] MEDS: chlordiazePOXIDE (*CRX) 25 MG CAPSULE 50 MG PO (22:59)
[2021-01-07] VITALS (14 sets, daily range): BP systolic 114–137; BP diastolic 53–96; PULSE 68–110; RESP 18–24; TEMP 36.4–38; O2SAT 94–99
[2021-01-07] MEDS: LORazepam INJ (*CRX) 2 MG/ML VIAL IV PUSH ×5 (04:24→19:59)
[2021-01-07] MEDS: chlordiazePOXIDE (*CRX) 25 MG CAPSULE 50 MG PO ×3 (05:29→17:02)
[2021-01-07] MEDS: SODIUM CHLORIDE 0.9% IV 1,000 ML 150 ML IV CONT ×3 (05:29→19:58)
[2021-01-07] MEDS: amLODIPine BESYLATE 5 MG TABLET PO (08:54)
[2021-01-07] MEDS: SERTRALINE HCL 50 MG TABLET PO (08:54)
[2021-01-07] MEDS: THIAMINE HCL 200 MG/2 ML VIAL 100 MG IV PUSH (08:54)
[2021-01-07 09:10] LABS: Hematocrit 36.5 % (42.0-52.0); Hemoglobin 12.1 g/dL (14.0-18.0); Immature Platelet Fraction Pct 7.5 % (0.9-11.2); Mean Corpuscular HGB Conc 33.2 g/dl (32-36); Mean Corpuscular Hemoglobin 32.5 pg (26-34); Mean Corpuscular Volume 98.1 fl (80-100); Mean Platelet Volume 10.7 fl (7.4-10.4); Platelet Count Result 140 k/mm3 (150-375); Red Blood Count 3.72 M/mm3 (4.6-6.20); Red Cell Distribution Width 13.3 % (11.5-14.5); White Blood Count 5.3 K/mm3 (4.5-10.0)
[2021-01-07 09:19] LABS: Alanine Aminotransferase 96 U/L (4-50); Albumin Level 3.4 g/dL (3.5-5.1); Alkaline Phosphatase 45 U/L (38-126); Anion Gap 9 mmol/L (8-16); Aspartate Amino Transferase 103 U/L (17-59); Bilirubin,Total 0.8 mg/dL (0.2-1.3); Blood Urea Nitrogen 6 mg/dL (9-20); Calcium 8.9 mg/dL (8.4-10.2); Carbon Dioxide 21 mmol/L (22-30); Chloride 108 mmol/L (98-107); Creatine Kinase 1222 U/L (55-170); Estimated CRCL calculation 166 ml/min; Estimated Glomerular Filt Rate > 60; Glucose 84 mg/dL (65-110); Phosphorus 3.2 mg/dL (2.5-4.5); Sodium 138 mmol/L (137-145)
[2021-01-07 09:30] LABS: Prothrombin Time 12.9 Seconds (11.1-14.7)
[2021-01-07 09:31] LABS: Partial Thromboplastin Time 26.4 SECONDS (22.3-36.8)
--- NOTE | 2021-01-07 11:45 | PM.IMPN ---
Progress Note: A&P Assessment and Plan (1) Delirium tremens: Code(s): F10.231 - Alcohol dependence with withdrawal delirium Status: Acute (2) Rhabdomyolysis: Code(s): M62.82 - Rhabdomyolysis Status: Acute (3) Alcohol dependence with withdrawal: Qualifiers: Complication of substance-induced condition: with perceptual disturbance Qualified Code(s): F10.232 - Alcohol dependence with withdrawal with perceptual disturbance Code(s): F10.239 - Alcohol dependence with withdrawal, unspecified Status: Acute (4) Right rib fracture: Qualifiers: Encounter type: initial encounter Fracture type: closed Rib fracture type: multiple ribs Qualified Code(s): S22.41XA - Multiple fractures of ribs, right side, initial encounter for closed fracture Code(s): S22.31XA - Fracture of one rib, right side, initial encounter for closed fracture Status: Acute (5) Hypertension: Qualifiers: Hypertension type: primary hypertension Qualified Code(s): I10 - Essential (primary) hypertension Code(s): I10 - Essential (primary) hypertension Status: Acute (6) Generalized anxiety disorder: Code(s): F41.1 - Generalized anxiety disorder Status: Acute (7) Alcoholic hepatitis: Code(s): K70.10 - Alcoholic hepatitis without ascites Status: Acute (8) Hypokalemia: Code(s): E87.6 - Hypokalemia Status: Acute (9) Thrombocytopenia: Code(s): D69.6 - Thrombocytopenia, unspecified Status: Acute Additional Plan Patient admitted for alcohol withdrawal with hallucinations. CIWA score ranging from 19-38. Currently appears to be resting well. He is tolerating oral intake. He is requiring frequent doses of IV Ativan still. Continue thiamine. Continue scheduled Librium. Total CK is elevated 1200. Continue monitoring levels to ensure this trans in the right direction. Renal function normal. Continue IV fluids. Most likely related to his recent fall that resulted in the right rib fractures. Continue supportive care for his rib fractures. Blood pressure stable. Continue Norvasc for blood pressure. Potassium has improved. Will continue to replace. LFTs elevated felt to be related to alcoholic hepatitis. Levels are trending downward as expected. Platelet count slightly low but stable. Will follow. SCDs for DVT prophylaxis. Subjective Date/time seen: 01/07/21 11:45 Interval history: 30yo male with ADHD, alcoholism and HTN here for alcohol withdrawal with hallucinations. Patient slept well last night. No chest pain except for the pain in the right side from the rib fractures. No nausea vomiting. Ate well this morning. Less tremors. Exam Narrative: Tm 100.4 130/81 88 22 98%ra Gen - NARD lying semi-recumbent in bed asleep Chest - Lungs clear anteriorly in the flanks. Normal respiratory rate. faint bruising noted right side of the chest wall CV - RRR S1/S2; Tele showing no significant dysrhythmias Abd - Soft, NT/ND, Positive BS Ext - No pedal edema Psych - awakens easily. slight tremors noted. disheveled appearing. Skin - Warm and dry. Not diaphoretic Objective Data Vital Signs Vital Signs: Vital Signs - 24 hr 01/06/21 12:00 01/06/21 14:00 01/06/21 15:07 Temperature 98.6 F Pulse Rate 79 80 90 Pulse Rate [Monitor] 89 Respiratory Rate 17 16 22 H Blood Pressure 139/99 H 142/121 H 133/86 Pulse Oximetry 100 100 100 01/06/21 15:10 01/06/21 15:15 01/06/21 15:34 Temperature 98.3 F Pulse Rate 112 H 92 Pulse Rate [Monitor] Respiratory Rate 18 Blood Pressure 133/86 127/78 Pulse Oximetry 97 01/06/21 16:00 01/06/21 16:40 01/06/21 18:00 Temperature Pulse Rate 86 86 87 Pulse Rate [Monitor] 86 Respiratory Rate 16 Blood Pressure Pulse Oximetry 97 01/06/21 20:00 01/06/21 21:49 01/06/21 23:36 Temperature 97.9 F 98.3 F Pulse Rate 74 72 75 Pulse Rate [Monitor] 74
[2021-01-07] MEDS: POTASSIUM CHLORIDE 20 MEQ TABLET 40 MEQ PO (12:59)
[2021-01-07] MEDS: traZODone HCL 50 MG TABLET PO (21:06)
[2021-01-08] VITALS (9 sets, daily range): BP systolic 130–156; BP diastolic 61–107; PULSE 63–91; RESP 12–20; TEMP 36.2–36.9; O2SAT 97–99
[2021-01-08] MEDS: chlordiazePOXIDE (*CRX) 25 MG CAPSULE 50 MG PO ×3 (00:26→11:58)
[2021-01-08] MEDS: SODIUM CHLORIDE 0.9% IV 1,000 ML 150 ML IV CONT ×2 (02:34→08:44)
[2021-01-08 05:30] LABS: Hematocrit 37.3 % (42.0-52.0); Hemoglobin 12.5 g/dL (14.0-18.0); Mean Corpuscular HGB Conc 33.5 g/dl (32-36); Mean Corpuscular Hemoglobin 33.2 pg (26-34); Mean Corpuscular Volume 98.9 fl (80-100); Mean Platelet Volume 10.9 fl (7.4-10.4); Platelet Count Result 164 k/mm3 (150-375); Red Blood Count 3.77 M/mm3 (4.6-6.20); Red Cell Distribution Width 13.2 % (11.5-14.5)
[2021-01-08 05:47] LABS: Alanine Aminotransferase 91 U/L (4-50); Albumin Level 3.6 g/dL (3.5-5.1); Alkaline Phosphatase 51 U/L (38-126); Anion Gap 7 mmol/L (8-16); Aspartate Amino Transferase 83 U/L (17-59); Bilirubin,Total 0.4 mg/dL (0.2-1.3); Calcium 8.9 mg/dL (8.4-10.2); Carbon Dioxide 26 mmol/L (22-30); Chloride 103 mmol/L (98-107); Creatine Kinase 611 U/L (55-170); Estimated CRCL calculation 166 ml/min; Estimated Glomerular Filt Rate > 60; Glucose 107 mg/dL (65-110); Phosphorus 1.9 mg/dL (2.5-4.5); Sodium 136 mmol/L (137-145)
[2021-01-08 06:17] LABS: Blood Urea Nitrogen < 2 mg/dL (9-20)
[2021-01-08] MEDS: SERTRALINE HCL 50 MG TABLET PO (08:43)
[2021-01-08] MEDS: amLODIPine BESYLATE 5 MG TABLET PO (08:43)
[2021-01-08] MEDS: POTASSIUM CHLORIDE 20 MEQ TABLET 40 MEQ PO (08:44)
[2021-01-08] MEDS: THIAMINE HCL 200 MG/2 ML VIAL 100 MG IV PUSH (08:44)
--- NOTE | 2021-01-08 16:04 | PM.IMPN ---
Progress Note: A&P Assessment and Plan (1) Delirium tremens: Code(s): F10.231 - Alcohol dependence with withdrawal delirium Status: Acute (2) Rhabdomyolysis: Code(s): M62.82 - Rhabdomyolysis Status: Acute (3) Alcohol dependence with withdrawal: Qualifiers: Complication of substance-induced condition: with perceptual disturbance Qualified Code(s): F10.232 - Alcohol dependence with withdrawal with perceptual disturbance Code(s): F10.239 - Alcohol dependence with withdrawal, unspecified Status: Acute (4) Right rib fracture: Qualifiers: Encounter type: initial encounter Fracture type: closed Rib fracture type: multiple ribs Qualified Code(s): S22.41XA - Multiple fractures of ribs, right side, initial encounter for closed fracture Code(s): S22.31XA - Fracture of one rib, right side, initial encounter for closed fracture Status: Acute (5) Hypertension: Qualifiers: Hypertension type: primary hypertension Qualified Code(s): I10 - Essential (primary) hypertension Code(s): I10 - Essential (primary) hypertension Status: Acute (6) Generalized anxiety disorder: Code(s): F41.1 - Generalized anxiety disorder Status: Acute (7) Alcoholic hepatitis: Code(s): K70.10 - Alcoholic hepatitis without ascites Status: Acute (8) Hypokalemia: Code(s): E87.6 - Hypokalemia Status: Acute (9) Thrombocytopenia: Code(s): D69.6 - Thrombocytopenia, unspecified Status: Acute Additional Plan Patient admitted for alcohol withdrawal with hallucinations. CIWA score ranging from 19-38 early in his hospital course but improved down to 2-4. Still with hallucination. He is tolerating oral intake. He was requiring frequent doses of IV Ativan but nothing since last night. Continue thiamine. Continue scheduled Librium but will cut dose back. Total CK was elevated 1222. IV fluids started and TCK down to 611. He is eating now so will stop IV fluids. Renal function remains normal. Etiology of the rhabdomyolysis most likely related to his recent fall that resulted in the right rib fractures. Continue supportive care for his rib fractures. Blood pressure reviewed today and elevated at times. Will continue Norvasc for blood pressure. Potassiumlow again and replacement ordered. Mag level okay. LFTs elevated felt to be related to alcoholic hepatitis with repeat levels trending down. Platelet count normal now and felt related to the toxic effects from alcohol. If he does well overnight on lower dose of Librium, plan discharge tomorrow. SCDs for DVT prophylaxis. Subjective Date/time seen: 01/08/21 16:04 Interval history: 30yo male with ADHD, alcoholism and HTN here for alcohol withdrawal with hallucinations. Feeling better. Eating okay. Tremors better. Still having hallucinations. No CP but mild abdominal pain. No n/v Exam Narrative: AF 98.4 130/90 68 18 99%ra Gen - NARD Chest - CTA bilaterally, nml RR CV - RRR S1/S2; Tele showing no significant dysrhythmias Abd - Soft, NT/ND, Positive BS Ext - No pedal edema Psych - AOx4. Slight tremors. Disheveled appearing. Skin - Warm and dry. Not diaphoretic Objective Data Vital Signs Vital Signs: Vital Signs - 24 hr 01/07/21 18:00 01/07/21 20:00 01/07/21 22:00 Temperature 98.0 F Pulse Rate 74 78 78 Pulse Rate [Monitor] 80 Respiratory Rate 20 Blood Pressure 137/89 Pulse Oximetry 97 01/07/21 23:51 01/08/21 00:00 01/08/21 02:00 Temperature 97.6 F Pulse Rate 68 72 63 Pulse Rate [Monitor] 68 Respiratory Rate 18 Blood Pressure 137/61 137/61 Pulse Oximetry 99 99 01/08/21 04:00 01/08/21 06:00 01/08/21 08:00 Temperature 97.8 F 97.1 F L Pulse Rate 91 70 64 Pulse Rate [Monitor] 68 Respiratory Rate 20 18 Blood Pressure 136/76 156/107 H Pulse Oximetry 97 99 01/08/21 10:00 01/08/21 12:00 01/08/21 14:00 Temperature 98
[2021-01-08] MEDS: chlordiazePOXIDE (*CRX) 25 MG CAPSULE PO (18:53)
--- NOTE | 2021-01-08 19:55 | PC.NURSE ---
This patient, Abelardo Miller, was transferred to [[facility] ] on 01/08/21 at 1955. Personal belongings sent with patient. Report given to [ BOBBY Roth]. Appropriate documentation sent with patient.
[2021-01-08] MEDS: traZODone HCL 50 MG TABLET PO (22:04)
--- NOTE | 2021-01-08 22:43 | PC.NURSE ---
This patient, Abelardo Miller, arrived to room 243 on 01/08/2021 19:55.
[2021-01-09] VITALS: BP 136/97; PULSE 72; RESP 16; TEMP 36.6; O2SAT 97
[2021-01-09] MEDS: chlordiazePOXIDE (*CRX) 25 MG CAPSULE PO ×3 (00:59→12:18)
[2021-01-09 05:54] LABS: Anion Gap 8 mmol/L (8-16); Blood Urea Nitrogen 6 mg/dL (9-20); Calcium 9.9 mg/dL (8.4-10.2); Carbon Dioxide 26 mmol/L (22-30); Chloride 103 mmol/L (98-107); Estimated CRCL calculation 144 ml/min; Estimated Glomerular Filt Rate > 60; Glucose 97 mg/dL (65-110); Potassium 3.6 mmol/L (3.4-5.0); Sodium 137 mmol/L (137-145)
[2021-01-09 06:00] VITALS: BP 131/87; PULSE 83; RESP 16; TEMP 36; O2SAT 100
[2021-01-09 06:11] LABS: Creatine Kinase 266 U/L (55-170)
[2021-01-09] MEDS: amLODIPine BESYLATE 5 MG TABLET PO (08:40)
[2021-01-09] MEDS: SERTRALINE HCL 50 MG TABLET PO (08:40)
[2021-01-09 12:00] VITALS: PULSE 68
[2021-01-09 14:00] VITALS: BP 140/62; PULSE 84; RESP 16; TEMP 36.8; O2SAT 94
--- NOTE | 2021-01-09 14:27 | PM.DS ---
DS: Admitting Diagnosis Admitting Diagnosis Alcohol withdrawal with hallucinations DS: Discharge Diagnosis Discharge Diagnosis (1) Delirium tremens: Code(s): F10.231 - Alcohol dependence with withdrawal delirium Status: Acute (2) Rhabdomyolysis: Code(s): M62.82 - Rhabdomyolysis Status: Acute (3) Alcohol dependence with withdrawal: Qualifiers: Complication of substance-induced condition: with perceptual disturbance Qualified Code(s): F10.232 - Alcohol dependence with withdrawal with perceptual disturbance Code(s): F10.239 - Alcohol dependence with withdrawal, unspecified Status: Acute (4) Right rib fracture: Qualifiers: Encounter type: initial encounter Rib fracture type: multiple ribs Fracture type: closed Qualified Code(s): S22.41XA - Multiple fractures of ribs, right side, initial encounter for closed fracture Code(s): S22.31XA - Fracture of one rib, right side, initial encounter for closed fracture Status: Acute (5) Hypertension: Qualifiers: Hypertension type: primary hypertension Qualified Code(s): I10 - Essential (primary) hypertension Code(s): I10 - Essential (primary) hypertension Status: Acute (6) Generalized anxiety disorder: Code(s): F41.1 - Generalized anxiety disorder Status: Acute (7) Alcoholic hepatitis: Code(s): K70.10 - Alcoholic hepatitis without ascites Status: Acute (8) Hypokalemia: Code(s): E87.6 - Hypokalemia Status: Acute (9) Thrombocytopenia: Code(s): D69.6 - Thrombocytopenia, unspecified Status: Acute DS: Summary Hospital Course Reason for hospitalization: 30yo male with ADHD, alcoholism and HTN here for alcohol withdrawal with hallucinations. Please see H&P for details. Hospital Course: Patient admitted for alcohol withdrawal with hallucinations. CIWA score ranging from 19-38 early in his hospital course. He was started on scheduled Librium and had Ativan IV available as needed. CIWA improved down to 0. He was having hallucination but these resolved. He was requiring frequent doses of IV Ativan early on but nothing since the past two nights. He was started on thiamine. We cut back the Librium dose and he tolerated this well. Total CK was elevated 1222. IV fluids started and TCK dropped to 266. He was eating normally. Renal function remained normal. Etiology of the rhabdomyolysis most likely related to his recent fall that resulted in the right rib fractures. Continue supportive care for his rib fractures. Blood pressure elevated at times felt related to the withdrawal. [facility]. Electrolytes monitored and managed. LFTs elevated felt to be related to alcoholic hepatitis with repeat levels trending down. Platelet count low initially but normal now and felt related to the toxic effects from alcohol. He was educated about the benefits of abstain from alcohol. care coordination provided information for the patient about alcohol rehab. We continued his Zoloft and trazodone here. Patient had clinical improvement. He feels well today. No complaints. No tremors. He overall did well was able to be discharged home on January 09, 2021. Status at Discharge Cognitive/behavioral status at discharge: stable Time Spent with Patient Time attestation: Total time spent providing and/or coordinating discharge services: 32 minutes Time spent: Greater than 30 minutes Exam Narrative: AF 96.8 131/87 68 16 100%ra Gen - NARD Chest - CTA bilaterally, nml RR CV - RRR S1/S2 Abd - Soft, NT/ND, Positive BS Ext - No pedal edema Psych - AOx4. Skin - Warm and dry. Not diaphoretic DS: Data Data Completed and Pending Labs on day of discharge: Labs from last 24 hours 01/09/21 05:18 Sodium 137 Potassium 3.6 Chloride 103 Carbon Dioxide 26 Anion Gap 8 BUN 6 L Creatinine 0.70 Estim Creat Clear Calc 144
== END 2021-01-09 15:15 | disposition home or self-care (01) ==
LOC: ANHED 07:00 → ANHIMU 14:59 → ANH2MED 01-09 14:37 → ANHIMU 01-13 09:42
PROVIDERS: Admitting Provider Internal Medicine; Emergency Provider Emergency Medicine; PCP Family Medicine; Visit Provider Internal Medicine
DX: F10.231 Alcohol dependence with withdrawal delirium (principal); F10.232 Alcohol dependence with withdrawal with perceptual disturbance; S22.41XA Multiple fractures of ribs, right side, initial encounter for closed fracture; X58.XXXA Exposure to other specified factors, initial encounter; M62.82 Rhabdomyolysis; F41.1 Generalized anxiety disorder; K70.10 Alcoholic hepatitis without ascites; E87.6 Hypokalemia; D69.6 Thrombocytopenia, unspecified; G62.1 Alcoholic polyneuropathy; F10.288 Alcohol dependence with other alcohol-induced disorder; I10 Essential (primary) hypertension; F12.90 Cannabis use, unspecified, uncomplicated
CPT/HCPCS: 36415; 70450; 71101; 80048; 80053; 80307; 81001; 82550; 83735; 84100; 85025; 85027; 85055; 85610; 85730; 93005; 96361; 96374; 96375; 96376; 99285; A9270; G0378; G0379; J2060; J3360; J3411; J7030

== ENCOUNTER 2024-05-22 10:23 | Emergency (ER) | payer OTHER, SELFPAY ==
--- NOTE | ~2024-05-22 | XR_ITS ---
XR foot LT min 3V Ordering provider: Katt Barnes NP History: . dorsal foot pain and swelling 1-2 METATARSALS . Comparison: None. FINDINGS: BONES: No acute fracture or dislocation. JOINT SPACES: Normal. No tarsal coalition. SOFT TISSUES: Normal. IMPRESSION: No acute osseous abnormality left foot. Reviewed, dictated and finalized at location A. EMATICIAN
[2024-05-22 10:34] VITALS: BP 139/85; PULSE 104; RESP 16; TEMP 36.9; O2SAT 100
--- NOTE | 2024-05-22 10:38 | ED.LOWEXIN ---
HPI - Extremity Injury (Lower) General Chief Complaint: Extremity Injury, Lower Stated Complaint: L FOOT INJURY Time Seen by Provider: 05/22/24 10:38 Source: patient, RN notes reviewed and old records reviewed Mode of arrival: ambulatory Limitations: no limitations History of Present Illness HPI Narrative: 33 year old male presents to [facility] with complaints of pain to his left foot dorsal aspect with some mild swelling and also some swelling to his toes for the past 2 days. Patient reports that he has had some intermittent left foot pain for the past 6 months. He states that he walks to and from work daily and he is on his feet all day at work, denies any known recent specific injury to his foot. Patient reports that he tries to wear good supportive shoes and is wearing [employer] shoes at this time. No obvious redness or deformity noted of left foot. MD complaint: foot injury Onset (ago): day(s) (increased pain 2 days some problems for 6 months.) Severity scale (1-10): 3 Exacerbating factors: weight bearing Related Data Home Medications ?Medication ?Instructions ?Recorded ?Confirmed ?Last Taken ?Type sertraline 50 mg tablet See Rx Instructions .Route .COMPLEX 03/16/21 03/16/21 Unknown History Allergies Allergy/AdvReac Type Severity Reaction Status Date / Time No Known Allergies Allergy Mild Verified 05/22/24 11:02 Review of Systems Review of Systems: CONSTITUTIONAL: Denies fever, chills, or sweats. EYES: Denies visual changes, redness, or discharge. ENT: Denies rhinorrhea, congestion, sore throat, or otalgia. CARDIOVASCULAR: Denies chest pain, palpitations, or edema. RESPIRATORY: Denies cough or dyspnea. GASTROINTESTINAL: Denies abdominal pain, nausea, vomiting, or diarrhea. GENITOURINARY: Denies dysuria or hematuria. SKIN: Denies rash or itching. MUSCULOSKELETAL: Denies back pain, reports pain to dorsal aspect of left foot with some swelling to foot and toes noted, or myalgia. NEUROLOGIC: Denies headache, numbness, or weakness. PSYCHIATRIC: Reports history of anxiety or depression. All systems reviewed & are unremarkable except as noted in HPI and below PMFSH Past Medical History Medical History Back pain Hypertension Alcoholism Anxiety ADHD Alcoholic peripheral neuropathy Surgical History Surgical History History of skin graft Family History Family History Grandparent Diabetes mellitus Elevated lipids Hypertension Father Heart disease Hypertension Mother Rheumatoid arthritis Social History Social History Social History: The patient was positive for marijuana. he admits to prior use of cocaine, LSD as well. He reports to me that he drinks a Liter of alcohol a day he reported the nursing staff he drinks up to a gallon of alcohol a day. He has drank heavily since his early teenage years. He occasionally smokes tobacco. Smoking status: Former smoker Second hand tobacco smoke exposure: No Additional smoking assessment comments: very rarely Alcohol intake: current Drinks per week: 7 Alcohol use details: Binges Substance use: current Substance use type: marijuana Other substance usage details: very rarely Last use: Patient states he drinks one gallon a day . Pt will not elaborate further. Gender identity (if verbalized by the patient): Male Spiritual care concerns: No Comments At time of signature, agree with nursing past medical, surgical, social and family history. There is no relevant family history pertinent to the presenting complaint Exam Narrative: GENERAL: Well-appearing, well-nourished, and in no acute distress. HEAD: Normocephalic, atraumatic. EYES: PERRLA and EOMI. ENT: Nares clear, no rhinorrhea or epistaxis. Mucous membranes moist. NECK: Supple. no lymphadenopathy CHEST: Clear to auscultation. No respiratory distress.SAO2 100% on room air HEART: Regular rate and rhythm. No murmur heard. Normal peripheral pulses. ABDOMEN: Soft, nontender, nondistended, normal active bowel sounds. EXTREMITIES: Normal range of motion. No edema.Exception noted to left dorsal foot pain with mild swelling noted and some swelling noted to toes, pedal pulse palpable, no redness noted or acute warmth, denies any known recent injury has been bothering him for 6 months with increase in past 2 days SKIN: Warm, dry, no rash. NEURO: No focal deficits. Alert and oriented x3. Course Course Emergency Course: Patient is aware of diagnosis, understands and agrees to treatment plan.? Anticipatory guidance given.? Patient agrees to follow-up as directed and is aware of reasons to seek care at the emergency department. Portions of this record may have been created with voice recognition software Level of Care: Express Care Visit Vital Signs Vital signs: Vital Signs Temperature 36.9 C 05/22/24 10:34 Pulse Rate 104 H 05/22/24 10:34 Respiratory Rate 16 05/22/24 10:34 Blood Pressure 139/85 05/22/24 10:34 Pulse Oximetry 100 05/22/24 10:34 Temperature 36.9 C 05/22/24 10:34 Pulse Rate 104 H 05/22/24 10:34 Respiratory Rate 16 05/22/24 10:34 Blood Pressure 139/85 05/22/24 10:34 Pulse Oximetry 100 05/22/24 10:34 Reviewed MDM - Extremity Injury (Lower) Differential Diagnosis Differential diagnosis: Likely fracture of toe and other (foot fracture, arthritis, gout) Medical Records Attestation: I reviewed the patient's medical records. Imaging Data Attestation: I personally reviewed and interpreted this imaging study as follows: My impression: no acute osseous abnormality Radiologist's impression: [facility] [address] [id number] [facility] [place] [address] XRay Report Signed Patient: Abelardo Miller : 1990 MR#: [id number] Age: 33 Acct:[id number] [facility] ADM Date: 05/22/24Attending Dr: Ordering Physician: Katt Barnes APRN Date of Service: 05/22/24 Procedure(s): XR foot LT min 3V Accession Number(s): [id number] cc: Katt Barnes APRN; UNKNOWN,DOCTOR~ XR foot LT min 3V Ordering provider: Katt Barnes NP History: . dorsal foot pain and swelling 1-2 METATARSALS . Comparison: None. FINDINGS: BONES: No acute fracture or dislocation. JOINT SPACES: Normal. No tarsal coalition. SOFT TISSUES: Normal. IMPRESSION: No acute osseous abnormality left foot. Reviewed, dictated and finalized at location A. LE ARCHITECT Dictated By: Dejan Rhodes MD 05/22/24 1112 Signed By: <Electronically signed by Dejan Rhodes MD in OV> Critical Care Time Critical Care Time Critical Care Time: No Discharge Plan Discharge Clinical Impression: Left foot pain Patient Disposition: Home, Self-Care Condition: Stable Additional Instructions: Elastic wrap or orthopedic splint as directed for comfort for the next 5-7 days Tylenol for lesser pain Ibuprofen regularly for the next 2-3 days for the inflammation Follow-up with orthopedic surgeon if continued problems Follow-up with PCP if further problems or concerns Ice to the area 20-30 minutes 4-6 times a day Elevate above heart If your symptoms persist, change or worsen significantly before you can contact your personal physician then please, without delay, go to the emergency department for further evaluation. Follow-up with PCP in 7-10 days or sooner if needed Follow up with PCP soon in regards to your blood pressure which is elevated above threshold for referral. Blood pressure above 120/80 may indicate pre-hypertension.139/85 Steroid as prescribed for the next 5 days with food Patient Language: Kiswahili Prescriptions: New prednisone 20 mg tablet 20 mg PO BID Qty: 10 0RF No Action sertraline 50 mg tablet See Rx Instructions .ROUTE .COMPLEX Dose Instruction: TAKE 1 TABLET BY MOUTH DAILY Rx Instructions: TAKE 1 TABLET BY MOUTH DAILY pt takes 1/2 tablet a day; thiamine HCl (vitamin B1) [Vitamin B-1] 100 mg Tablet 100 mg PO QAM Qty: 30 1RF amlodipine 5 mg tablet See Rx Instructions .ROUTE .COMPLEX Qty: 90 1RF Dose Instruction: TAKE 1 TABLET BY MOUTH EVERY MORNING Rx Instructions: TAKE 1 TABLET BY MOUTH EVERY MORNING trazodone 50 mg tablet See Rx Instructions .ROUTE .COMPLEX Qty: 90 0RF Dose Instruction: TAKE 1 TABLET BY MOUTH AT BEDTIME Rx Instructions: TAKE 1 TABLET BY MOUTH AT BEDTIME Follow-up/Referrals: UNKNOWN,DOCTOR [Primary Care Provider] - Time of Disposition: 11:36 Quality [place] Coma Scale Eyes: Open Verbal: Oriented and Alert Motor: Follows Commands [place] Coma Total Score: 15
== END 2024-05-22 11:41 | disposition home or self-care (01) ==
PROVIDERS: Emergency Provider Registered Nurse
DX: M79.672 Pain in left foot (principal); I10 Essential (primary) hypertension; Z87.891 Personal history of nicotine dependence
CPT/HCPCS: 73630; 99213; G0463